=== PATIENT | female | born 1965 | race Caucasian/White ===

== ENCOUNTER 2019-09-14 21:30 | Emergency (ER) | payer OTHER, MEDICAID, SELFPAY ==
[2019-09-14 21:42] VITALS: BP 210/120; PULSE 86; RESP 16; TEMP 36.6; O2SAT 99; BMI 44.9
--- NOTE | 2019-09-14 22:09 | ED_ITS ---
HPI - General Adult General Chief complaint: Hypertension Stated complaint: dental pain causing high blood pressure Time Seen by Provider: 09/14/19 21:38 Source: patient Mode of arrival: Family Vehicle Limitations: no limitations History of Present Illness HPI narrative: Patient is a 53-year-old female who presents with dental pain and elevated blood pressure. She states she was at the walk-in clinic today for her tooth she was placed on antibiotic she has only taken 1 of them. However her blood pressure is quite elevated noted to be systolic over 200. She says that she has in quite a bit of pain from her tooth. She has no chest pain or palpitations or shortness of breath. She took 800 mg of ibuprofen prior to arrival along with Advil p.m.. Onset (ago): hour(s) Related Data Previous Rx's Medication Instructions Recorded hydrocodone-acetaminophen 1 tab PO Q6H PRN #10 tab 09/14/19 Allergies Allergy/AdvReac Type Severity Reaction Status Date / Time No Known Drug Allergies Allergy Verified 09/14/19 21:50 Review of Systems Review of Systems Narrative: GENERAL: Denies chills, fatigue, malaise, fever, sweats, travel HEENT: See HPI RESPIRATORY: Denies dyspnea, cough, wheezing, hemoptysis, sputum. CARDIOVASCULAR: Denies chest pain, palpitations, orthopnea, edema GASTROINTESTINAL: Denies nausea, vomiting, abdominal pain, diarrhea, constipation, melena. : Denies dysuria, frequency, incontinence, hematuria, urinary retention, flank pain. MUSCULOSKELETAL: Denies weakness, joint pain, or bony pain SKIN: No rash, no erythema, no pruritus NEUROLOGIC: Denies weakness, dizziness, headache, numbness, change in speech, confusion PSYCHIATRIC: No concerning psychosocial issues. 12 point review of systems is negative except for those stated above and HPI Patient History Medical History Hypertension (Acute) Social History Smoking Status: Never smoker alcohol intake frequency: a few times a week Substance Use Type: does not use Exam Initial Vital Signs Initial Vital Signs: Vital Signs Temperature 97.8 F 09/14/19 21:42 Pulse Rate 86 09/14/19 21:42 Respiratory Rate 16 09/14/19 21:42 Blood Pressure 210/120 H 09/14/19 21:42 Pulse Oximetry 99 09/14/19 21:42 GENERAL: Well-appearing, well-nourished and in no acute distress. HEENT: Head atraumatic,EOMI, pupils reactive, face symmetric, moist mucous membranes CARDIOVASCULAR: Regular rate and rhythm without murmurs, rubs or gallops. RESPIRATORY: Breath sounds equal bilaterally, no wheezes rales or rhonchi. ABDOMEN: Soft, nontender. Normoactive bowel sounds all 4 quadrants. No gua rding or rebound. EXTREMITIES: Normal range of motion, no clubbing or edema. Neurovascularly intact NEUROLOGICAL: Alert and oriented x4.Normal gait and speech. Cranial nerves II through XII grossly intact. SKIN: Warm, dry, no laceration, no petechiae, no rashes or lesions. [facility] Adult Head Mouth: 1. Pain, no dental abscess Procedures Nerve Block Nerve Block 1: Time out performed: Yes Local Anesthetic: bupivacaine 0.5% and with epi Intraoral Nerve Block: supraperiosteal Patient Tolerated Procedure: Well Complications: none Course Orders Ordered: ED Orders 09/14/19 22:41 EKG-12 Lead Stat 09/14/19 22:50 Complete Blood Count AUTO DIFF Stat Comprehensive Metabolic Panel Stat Lipase Stat Troponin & CK Cardiac Panel Stat Discontinued Medications Hydrocodone Bitart/Acetaminophen ([place] 5/325) 1 tab PO NOW ONE Stop: 09/14/19 22:28 Last Admin: 09/14/19 22:31 Dose: 1 tab Documented by: KDWIGHT Ketorolac Tromethamine (Toradol) 30 mg IV NOW ONE Stop: 09/14/19 23:51 Vital Signs Vital signs: Vital Signs - 8 hr 09/14/19 21:42 09/14/19 22:26 09/14/19 23:01 Temperature 97.8 F Pulse Rate 86 74 Respiratory Rate 16 Blood Pressure 210/120 H Blood Pressure [Left Arm] 204/106 H 192/110 H Pulse Oximetry 99 96 09/14/19 23:25 09/15/19 00:00 Temperature Pulse Rate 85 Respiratory Rate 18 Blood Pressure 206/100 H Blood Pressure [Left Arm] 210/98 H Pulse Oximetry 97 Medical Decision Making Lab Data Result diagrams: 09/14/19 22:50 09/14/19 22:50 Labs: Lab Results 09/14/19 09/14/19 Range/Units 22:50 22:50 WBC 8.5 (4.5-11.0) X10^3/uL RBC 4.40 (4.0-5.2) X10^6/uL Hgb 13.1 (12.0-16.0) g/dL Hct 38.9 (36-46) % MCV 88.6 (80-100) fL MCH 29.9 (26-34) PG MCHC 33.8 (30-36) % RDW 14.3 (11.6-14.8) % Plt Count 289 (150-400) X10^3/uL Neut % (Auto) 56.3 (50-75) % Lymph % (Auto) 29.7 (25-40) % [place] % (Auto) 7.2 (3-14) % Eos % (Auto) 6.3 H (2-4) % Baso % (Auto) 0.5 (0-2) % Neut # (Auto) 4800 (5266-0262) /uL Lymph # (Auto) 2500 (5717-1818) /uL [place] # (Auto) 600 (0-900) /uL Eos # (Auto) 500 H (0-450) /uL Baso # (Auto) 0 (0-100) /uL Sodium 141 (137-145) mmol/L Potassium 4.3 (3.4-5.1) mmol/L Chloride 103 (98-107) mmol/L Carbon Dioxide 29 (22-32) mmol/L BUN 25 H (7-17) mg/dL Creatinine 1.10 H (0.52-1.04) mg/dL Estimated GFR 52.2 L (>60) mL/min BUN/Creatinine Ratio 22.7 H (6-22) Glucose 126 H (70-100) mg/dL Calcium 9.2 (8.4-10.2) mg/dL Total Bilirubin 0.3 (0.2-1.3) mg/dL AST 37 H (14-36) IU/L ALT 38 H (<35) IU/L Alkaline Phosphatase 63 (38-126) U/L Total Creatine Kinase 219 H (30-135) U/L CK-MB (CK-2) 5.52 H (<2.37) ng/mL CK-MB (CK-2) Rel Index 2.5 (1.5-5.0) % Troponin I 0.030 (0.01-0.034) ng/mL Total Protein 7.5 (6.3-8.2) g/dL Albumin 4.5 (3.5-5.0) g/dL Globulin 3.0 (1.7-4.1) g/dL Albumin/Globulin Ratio 1.5 (1.0-2.8) Lipase 340 H (23-300) U/L ECG Data Attestation: I personally reviewed and interpreted this ECG as follows: Prior ECG tracings: not available for review Interpretation: Normal sinus rhythm rate 75 p.r. interval 136 and a QRS [address] elevations or depressions T-wave inversions noted in V2. No priors to compare MDM Narrative Medical decision making narrative: The patient's blood pressure is noted to be quite elevated is likely exacerbated by pain. She was given a dental block which only seemed to help mildly for pain. She was given [place] as well which seemed to help more. Due to persistently elevated blood pressure of blood work was checked no sign of end-organ damage. She has absolutely no chest pain shortness of breath or palpitations. She has an appointment with a dentist scheduled next week. She is already on antibiotics. Discharge Plan Departure Patient Disposition: Home Clinical Impression: Toothache Hypertension Qualifiers: Hypertension type: essential hypertension Qualified Code(s): I10 - Essential (primary) hypertension Discharge Date/Time: 09/15/19 00:02 Instructions: DI for High Blood Pressure, DI for Dental Pain Activity Restrictions/Additional Instructions: *You have been diagnosed with hypertension dental pain *What to do: Your blood pressure is probably elevated due to severe dental pain however blood work an EKG today are reassuring. *Continue to take medications as directed [place] 1-2 tablets every 6 hours if needed for severe pain Continue her antibiotic as previously prescribed *Follow up with your primary care provider in 2-3 days *Return to ER if you should have chest pain headache fevers facial swelling or any new, worsening or concerning symptoms CONTROLLED SUBSTANCE DISCHARGE (Narcotoic/benzodiazepine/Flexeril/Phenergan) 1. You have been prescribed narcotic medications, it does have acetaminophen/Tylenol/paracetamol in it so do not take extra Tylenol or Tylenol containing products 2. Please understand that we cannot provide further refills of narcotics, benzodiazepines or controlled substances through the ED and her pain management will need to be through your provider. 3. While on these medications you cannot drive or operate heavy machinery. 4. You cannot sign legal documents or perform any duties such as this. 5. As long as you're taking opiate pain medications he should also be taking a stool softener such as Colace, Dulcolax, MiraLAX or prune juice, to help avoid constipation. Prescriptions: New hydrocodone-acetaminophen 5-325 mg tablet 1 tab PO Q6H PRN (Reason: pain) Qty: 10 RF: 0 Referrals: Jan Dowd MD [Primary Care Provider] -
[2019-09-14 22:26] VITALS: BP 204/106
[2019-09-14] MEDS: HYDROCODONE/ACET 5/325 TABLET 1 TAB PO (22:31)
[2019-09-14 22:58] LABS: Add Manual Diff / Slide Review NO; Basophils Absolute Auto 0 /uL (0-100); Basophils Percent Auto 0.5 % (0-2); Eosinophils Absolute Auto 500 /uL (0-450); Eosinophils Percent Auto 6.3 % (2-4); Hematocrit 38.9 % (36-46); Hemoglobin 13.1 g/dL (12.0-16.0); Lymphocytes Absolute Auto 2500 /uL (1100-4500); Lymphocytes Percent Auto 29.7 % (25-40); Mean Corpuscular HGB Conc 33.8 % (30-36); Mean Corpuscular Hemoglobin 29.9 PG (26-34); Mean Corpuscular Volume 88.6 fL (80-100); Monocytes Absolute Auto 600 /uL (0-900); Monocytes Percent Auto 7.2 % (3-14); Neutrophils Absolute Auto 4800 /uL (1500-7000); Neutrophils Percent Auto 56.3 % (50-75); Platelet Count 289 X10^3/uL (150-400); Red Cell Distribution Width 14.3 % (11.6-14.8); White Blood Cell Count 8.5 X10^3/uL (4.5-11.0)
[2019-09-14 23:01] VITALS: BP 192/110; PULSE 74; O2SAT 96
[2019-09-14 23:10] LABS: Alanine Aminotransferase 38 IU/L (<35); Albumin 4.5 g/dL (3.5-5.0); Albumin Globulin Ratio 1.5 (1.0-2.8); Alkaline Phosphatase 63 U/L (38-126); Aspartate Aminotransferase 37 IU/L (14-36); BUN Creatinine Ratio 22.7 (6-22); Bilirubin Total 0.3 mg/dL (0.2-1.3); Blood Urea Nitrogen 25 mg/dL (7-17); Calcium 9.2 mg/dL (8.4-10.2); Carbon Dioxide 29 mmol/L (22-32); Chloride 103 mmol/L (98-107); Creatine Kinase 219 U/L (30-135); Estimated Glomerular Filt Rate 52.2 mL/min (>60); Glucose 126 mg/dL (70-100); HEMOLYSIS < 15 (0-50); Lipase 340 U/L (23-300); Potassium 4.3 mmol/L (3.4-5.1); Sodium 141 mmol/L (137-145); Total Protein 7.5 g/dL (6.3-8.2)
[2019-09-14 23:25] VITALS: BP 210/98
[2019-09-14 23:25] LABS: CKMB % Relative Index 2.5 % (1.5-5.0); Creatine Kinase MB 5.52 ng/mL (<2.37)
[2019-09-15] VITALS: BP 206/100; PULSE 85; RESP 18; O2SAT 97
== END 2019-09-15 00:02 | disposition home or self-care (01) ==
PROVIDERS: Emergency Provider Emergency Medicine; PCP Family Medicine
DX: K08.89 Other specified disorders of teeth and supporting structures (principal); I10 Essential (primary) hypertension
CPT/HCPCS: 36415; 64450; 80053; 82550; 82553; 83690; 84484; 85025; 93005; 99283; 99284

== ENCOUNTER → 2020-09-10 16:27 | Outpatient (CLI) | payer OTHER, MEDICAID, SELFPAY ==
--- NOTE | 2020-09-10 | DI.MG.S_ITS ---
BILATERAL DIGITAL SCREENING MAMMOGRAM 3D/2D WITH CAD: 09/10/2020 CLINICAL: Routine screening. Comparison is made to exams dated: 07/16/2016 mammogram, 07/02/2016 mammogram, 04/04/2015 mammogram, and 05/10/2007 mammogram - [facility]. The tissue of both breasts is heterogeneously dense. This may lower the sensitivity of mammography. Current study was also evaluated with a Computer Aided Detection (CAD) system. There is an oval asymmetry in the left breast middle depth superior region seen on the mediolateral oblique view only. This is more prominent. No other significant masses, calcifications, or other findings are seen in either breast. IMPRESSION: INCOMPLETE: NEEDS ADDITIONAL IMAGING EVALUATION The oval asymmetry in the left breast is indeterminate. Additional views with possible ultrasound are recommended. This exam was interpreted at Station ID: [id number]. NOTE: For mammograms, a report in lay terms will be sent to the patient. Approximately 15% of breast malignancies will not be visualized mammographically. In the management of a palpable breast mass, a negative mammogram must not discourage biopsy of a clinically suspicious lesion. Electronically Signed By: Fredo Cadet M.D. slc/:09/10/2020 17:40:19 letter sent: Additional Imaging Needed ACR BI-RADS Category 0: Incomplete [id number]
== END ==
PROVIDERS: PCP Student in an Organized Health Care Education/Training Program; Referring Provider Student in an Organized Health Care Education/Training Program; Visit Provider Student in an Organized Health Care Education/Training Program
DX: Z12.31 Encounter for screening mammogram for malignant neoplasm of breast (principal)
CPT/HCPCS: 77063; 77067

== ENCOUNTER → 2020-10-08 08:33 | Outpatient (CLI) | payer OTHER, MEDICAID, SELFPAY ==
--- NOTE | 2020-10-08 | DI.MG.S_ITS ---
UNILATERAL LEFT DIGITAL DIAGNOSTIC MAMMOGRAM 3D/2D WITH ADDITIONAL VIEWS: 10/08/2020 CLINICAL: Additional evaluation requested from prior study. Comparison is made to exams dated: 09/10/2020 mammogram, 07/16/2016 mammogram, and 07/02/2016 mammogram - [facility]. The tissue of left breast is heterogeneously dense. This may lower the sensitivity of mammography. There is an oval equal density asymmetry with an indistinct margin in the left breast middle depth superior region seen on the mediolateral oblique view only. This is less prominent. No other significant masses or calcifications are seen in the breast. IMPRESSION: INCOMPLETE: NEEDS ADDITIONAL IMAGING EVALUATION The oval equal density asymmetry in the left breast is indeterminate. An ultrasound is recommended. This exam was interpreted at Station ID: [id number]. NOTE: For mammograms, a report in lay terms will be sent to the patient. Approximately 15% of breast malignancies will not be visualized mammographically. In the management of a palpable breast mass, a negative mammogram must not discourage biopsy of a clinically suspicious lesion. Electronically Signed By: Nguyễn niño/schuyler:10/08/2020 09:03:41 ACR BI-RADS Category 0: Incomplete [id number]
--- NOTE | 2020-10-08 | DI.US.S_ITS ---
LIMITED ULTRASOUND OF LEFT BREAST AND AXILLA: 10/08/2020 CLINICAL: Patient returns today to evaluate a focal asymmetry in the left breast. Comparison is made to exams dated: 10/08/2020 mammogram, 09/10/2020 mammogram, 07/16/2016 mammogram, 07/02/2016 mammogram, 04/04/2015 mammogram, and 05/10/2007 mammogram - [facility]. Color flow and real-time ultrasound of the left breast 11-1 o'clock, and axilla regions were performed on the areas of interest. There is a 1.1 cm x 0.7 cm x 0.4 cm oval mass with a circumscribed margin in the left breast at 12 o'clock middle depth 7 cm from the nipple. This oval mass is hypoechoic. This likely correlates with mammography findings. Color flow imaging demonstrates that there is no vascularity present. There also is a 0.4 cm x 0.4 cm x 0.3 cm oval cyst in the left breast at 12 o'clock anterior depth 5 cm from the nipple. This oval cyst is hypoechoic with a well-defined boundary, internal echoes, and posterior acoustic enhancement. Color flow imaging demonstrates that there is no vascularity present. No significant enlarged lymph nodes were seen sonographically in the left axilla. IMPRESSION: PROBABLY BENIGN The 1.1 cm x 0.7 cm x 0.4 cm oval mass in the left breast at 12 o'clock middle depth resembles fibroglandular tissue and is probably benign. Follow-up mammogram and ultrasound in 6 months are recommended. The 0.4 cm x 0.4 cm x 0.3 cm oval cyst in the left breast at 12 o'clock anterior depth is consistent with a complicated cyst and is probably benign. A follow-up ultrasound in 6 months is recommended. A follow-up mammogram and an ultrasound in 6 months are recommended to demonstrate stability. This exam was interpreted at Station ID: [id number]. Electronically Signed By: Nguyễn niño/:10/08/2020 10:31:14 letter sent: Followup Recommended Ultrasound BI-RADS: 3 Probably benign
== END ==
PROVIDERS: PCP Student in an Organized Health Care Education/Training Program; Referring Provider Student in an Organized Health Care Education/Training Program; Visit Provider Student in an Organized Health Care Education/Training Program
DX: R92.8 Other abnormal and inconclusive findings on diagnostic imaging of breast (principal); N63.25 Unspecified lump in the left breast, overlapping quadrants; N60.02 Solitary cyst of left breast
CPT/HCPCS: 76642; 77065; G0279

== ENCOUNTER → 2020-11-28 12:49 | Outpatient (CLI) | payer OTHER, MEDICAID, SELFPAY ==
[2020-11-29 11:07] LABS: COVID19 -Nasal RAPID Negative (Negative)
== END ==
PROVIDERS: PCP Student in an Organized Health Care Education/Training Program; Visit Provider Family Medicine Sleep Medicine
DX: Z20.822 Contact with and (suspected) exposure to COVID-19 (principal)
CPT/HCPCS: 87635

== ENCOUNTER → 2020-12-19 08:26 | Outpatient (CLI) | payer OTHER, MEDICAID, SELFPAY ==
[2020-12-19 10:14] LABS: COVID19 -Nasal RAPID Negative (Negative)
== END ==
PROVIDERS: PCP Student in an Organized Health Care Education/Training Program; Visit Provider Family Medicine Sleep Medicine
DX: Z20.822 Contact with and (suspected) exposure to COVID-19 (principal); G47.33 Obstructive sleep apnea (adult) (pediatric); G47.00 Insomnia, unspecified; G47.19 Other hypersomnia; R06.83 Snoring; E66.01 Morbid (severe) obesity due to excess calories
CPT/HCPCS: 87635; 95811

== ENCOUNTER → 2021-01-31 08:02 | Outpatient (CLI) | payer OTHER, MEDICAID, SELFPAY ==
[2021-01-31] MEDS: COVID-19 VACC #1, MRNA(MOD) 100 MCG/0.5 ML VIAL IM (08:05)
== END ==
PROVIDERS: PCP Student in an Organized Health Care Education/Training Program; Visit Provider Internal Medicine
DX: Z23 Encounter for immunization (principal)
CPT/HCPCS: 0011A; 91301

== ENCOUNTER → 2021-02-28 07:50 | Outpatient (CLI) | payer OTHER, MEDICAID, SELFPAY ==
[2021-02-28] MEDS: COVID-19 VACC #2, MRNA(MOD) 100 MCG/0.5 ML VIAL IM (08:00)
== END ==
PROVIDERS: PCP Student in an Organized Health Care Education/Training Program; Visit Provider Internal Medicine
DX: Z23 Encounter for immunization (principal)
CPT/HCPCS: 0012A; 91301

== ENCOUNTER 2021-03-24 14:15 | Outpatient (RCR) | payer OTHER, MEDICAID, SELFPAY ==
--- NOTE | 2020-09-06 17:07 | PT.OIE ---
Current Diagnoses Urge incontinence (09/06/20) Past Medical History (Last Reviewed 09/14/19 @ 22:10 by Nirali Cox DO) Hypertension (Acute) Visit Care Team Role Provider Type Justyna Burdick MD Attending Provider Physician Primary Care Provider Referring Provider Specialty: Family Practice Address: [address] [place] [address], [place], [address] Email: [email or web address] Physical Therapy Initial Evaluation PT-OP-A Visit Information Start: 09/05/20 17:19 Freq: Status: Active Protocol: Document 09/06/20 10:47 LRN (Rec: 09/06/20 12:37 LRN [id number]) Out-Patient Physical Therapy Visit Information Visit Information Visit Type Initial Evaluation Visit Start Time 09:48 Visit Stop Time 10:40 Total Visit Minutes 52 Visit Number 1 Evaluation Information Evaluation Date 09/06/20 Precautions Precautions Depression, Controlled HBP PT-OP-B Current Condition Start: 09/05/20 17:19 Freq: Status: Active Protocol: Document 09/06/20 10:47 LRN (Rec: 09/06/20 12:37 LRN [id number]) Current Condition History of Current Condition Onset Date 6 yrs ago Current Complaints Incontinence with a strong urge Prior Treatments and Tests Physical therapy 2 yrs ago, but not able to complete due to insurance limit. Chiropractic treatment 2x/year Future Testing and Treatments Planned Sleep study. Developmental History Developmental History Had 1 son that was set up for adoption in 1988. was without complications except possible hemorrhaging Treatment Goals Patient/Caregiver Goals Pt goal is to gain control over bladder. To eliminate incontinence To be able to delay to make it to bathroom. 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 Current Functional Impairments (Reported) Functional Limitations- ADL's Pt not able to go outside the home without use of maxi-pad due to fear of loss of urine. Functional Limitations- Other Has history of R sciatic pain, R LBP, UBP. Personal Factors Other Personal Factors That May Effect Lives alone. Therapy/Recovery Endomorphic body type. PT-OP-C Subjective Start: 09/05/20 17:19 Freq: Status: Active Protocol: Document 09/06/20 10:47 LRN (Rec: 09/06/20 13:58 LRN [id number]) Patient Questionnaires Pelvic Pain and Urgency/Frequency Patient Symptom Scale Pelvic Pain Score 3 OP-PT Pain Assessment Pain Assessment Grid Paper Pain Assessment Grid Completed Yes: No pain noted. PT-OP-I Pelvic Floor Start: 09/05/20 17:19 Freq: Status: Active Protocol: Document 09/06/20 10:47 LRN (Rec: 09/06/20 12:37 LRN [id number]) Pelvic Floor Assessment Urine Pelvic Floor Surgery No Urinary Symptoms Urge Sensation,Hesitancy Other Urinary Symptoms Dribbling as walking to bathroom, Loss of urine with strong urge and first in the morning. Leakage Size Large Leakage Cause Urge Other Leakage Causes Triggers: Getting out of car, Walking into the house. Getting up first in the morning Leaks Per Day 3 Voiding Frequency 3 Nocturia 3 Pads Used In 24 Hours 1 Urine Pad Type Maxi Pad Bowel Bowel Surgery No Pelvic Clock Pelvic Clock 12-3 Tightness Pelvic Clock 3-6 Tightness Pelvic Clock 6-9 Tightness Pelvic Clock 9-12 Tightness Perineal Descent Resting Absent Bearing Absent Contraction Ability Voluntary Contraction Moderate Manual Muscle Testing Left 3 Manual Muscle Testing Right 2 Manual Muscle Testing Anterior 1 Manual Muscle Testing Posterior 3 Muscle Endurance (Seconds) 1 Number of Quick Contractions In 10 7 Seconds Comments Pelvic Floor Comments Quick Flick contraction weakness felt after 3 contractions. Visual inspection: Redness of perineum. No visible clitoral nod and anal wink. PT-OP-J Posture/Palpation/Skin Start: 09/05/20 17:19 Freq: Status: Active Protocol: Document 09/06/20 10:47 LRN (Rec: 09/06/20 12:37 LRN [id number]) Posture Evaluation Position Standing Evaluation View All positions Head/C-Spine Posture C-Spine Flattened T-Spine Posture Flattened L-Spine Posture Increased Lordosis Pelvis Posture Anteriorly Tilted,(R) Iliac Crest Superior,(R) PSIS Posterior Weight Distribution Balanced Ankle/Foot Posture (L) Pronated PT-OP-K Range of Motion Start: 09/05/20 17:19 Freq: Status: Active Protocol: Document 09/06/20 10:47 LRN (Rec: 09/06/20 12:37 LRN [id number]) Lumbar Spine Range of Motion Lumbar Spine Active Degrees Testing Position Standing Flexion 70 Extension 25 Rotation Left 20 Rotation Right 5 Lateral Flexion Left 20 Lateral Flexion Right 10 ROM Limitations Soft Tissue Tightness Hip Goniometric Range of Motion Hip Right Passive Testing Position Supine Internal Rotation 20 External Rotation 45 Comments ROM: not formally assessed. Left Passive Testing Position Supine Internal Rotation 10 External Rotation 60 Comments ROM: not formally assessed. PT-OP-M Strength Start: 09/05/20 17:19 Freq: Status: Active Protocol: Document 09/06/20 10:47 LRN (Rec: 09/06/20 12:37 LRN [id number]) Trunk Strength Trunk Manual Muscle Testing Testing Position Supine Core Stabilization Pt not able to maintain core stability (weak core R rot) with MMT leg on L side. Hip Strength Hip Manual Muscle Testing Right Flexion (L2) 4+ Good+ Adduction 4+ Good+ Comments Hip strength is 5/5 except as indicated above. Left Adduction 4+ Good+ Comments Hip strength is 5/5 except as indicated above. PT-OP-Q Treatments Start: 09/05/20 17:19 Freq: Status: Active Protocol: Document 09/06/20 10:47 LRN (Rec: 09/06/20 12:37 LRN [id number]) Self-Care/Home Management Treatment Education Patient Education Home Exercise Program Other Education Discussed goals and discussed results of evaluation. Education: Pt educated in use of Bladder Diary and I/S in tracking for 1 week. Discussed use of 2 different diaries for tracking of bladder. Activities Self-Care/Home Management Activities Issue & reviewed HEP for Kegels Quick Flicks and Long Holds. PT-OP-T Assessment and Plan Start: 09/05/20 17:19 Freq: Status: Active Protocol: Document 09/06/20 10:47 LRN (Rec: 09/06/20 12:37 LRN [id number]) Physical Therapy Assessment Rehab Potential Rehabilitation Potential Good Evaluation Complexity Number of Personal Factors/Comorbidities 1-2 Number of Body Systems Impaired 3 Clinical Presentation at Evaluation Evolving Impairments Impairments Coordination,Posture,ROM, Strength Goals Four Impairment Urinary continence w/triggers (getting out of car, walking into home) Short Term Goal (STG) Pt will be educated in Urge delay technique. STG Duration 09/20/20 Intermediate Goal (LTG) Pt will be able to control her urinary incontinence in the presence of triggers (getting out of car and walking into her house). LTG Duration 12/05/20 Three Impairment weakness of PF and core Short Term Goal (STG) Pt will demonstrate improved PF strength of at least 3/5 and with LE muscle testing of a core strength of at least 3+ /5. STG Duration 10/1820 Intermediate Goal (LTG) Pt will be able to delay urge to urinate in order to make it to bathroom getting up first in the morning. LTG Duration 12/05/20 Two Impairment Assymetry of hip mob and assymetry of pelvic positioning Short Term Goal (STG) Pt will improve symmetry of hip rotator symmetry. STG Duration 10/18/20 Intermediate Goal (LTG) Pt will demonstrate improved symmetry of pelvic positioning . LTG Duration 12/05/20 One Impairment Pt lacks an independent self care HEP. Scutcher Tender Goal (LTG) Pt will be independent and consistent with a self care HEP LTG Duration 12/05/20 Assessment Summary Assessment Pt presents with symptoms of urge incontinence due to PF weakness, core and hip instability/weakness and poor follow through of previous self correction program. The pt will benefit from skilled physical therapy for pt education, strengthening/ROM exercise, manual therapy, posture training and coordination of PF contraction . Physical Therapy Plan Frequency and Duration Frequency of Treatment 1x/Week Plan of Care Start Date 09/06/20 Plan of Care End Date 12/05/20 Therapeutic Interventions Therapeutic Interventions Coordination Training,Home Exercise Program,Manual Therapy,Neuromuscular Re- education,Patient/Caregiver Education,Self-Care/Home Management,Therapeutic Exercises Modalities Biofeedback Next Visit Focus/Plan Next Note Type Treatment Note Next Visit Plan Review bladder diary and discuss/make appropriate recommendations. Discuss proper PF care and educate in PF tissue health. Pt educated in urge delay technique. Assess PF contraction coordination and strength/ relaxation per EMG biofeedback . Initiate HEP: hip ROM ex' s and hip AD strengthening. HEP for core strengthening exercise and address posture. Manual therapy for PF stretching due to tightness.
--- NOTE | 2020-09-06 17:07 | PT.OPPOC ---
Physical, Occupational & Speech Therapy At [facility] Current Diagnoses Urge incontinence (09/06/20) Visit Care Team Role Provider Type Justyna Burdick MD Attending Provider Physician Primary Care Provider Referring Provider Specialty: Family Practice Address: [address] [place] [address], [facility] [place], [address] Email: [email or web address] Plan Of Care PT-OP-T Assessment and Plan Start: 09/05/20 17:19 Freq: Status: Active Protocol: Document 09/06/20 10:47 LRN (Rec: 09/06/20 12:37 LRN [id number]) Physical Therapy Assessment Rehab Potential Rehabilitation Potential Good Evaluation Complexity Number of Personal Factors/Comorbidities 1-2 Number of Body Systems Impaired 3 Clinical Presentation at Evaluation Evolving Impairments Impairments Coordination,Posture,ROM, Strength Goals Four Impairment Urinary continence w/triggers (getting out of car, walking into home) Short Term Goal (STG) Pt will be educated in Urge delay technique. STG Duration 09/20/20 Circulator Goal (LTG) Pt will be able to control her urinary incontinence in the presence of triggers (getting out of car and walking into her house). LTG Duration 12/05/20 Three Impairment weakness of PF and core Short Term Goal (STG) Pt will demonstrate improved PF strength of at least 3/5 and with LE muscle testing of a core strength of at least 3+ /5. STG Duration 10/1820 Skilled Nursing Goal (LTG) Pt will be able to delay urge to urinate in order to make it to bathroom getting up first in the morning. LTG Duration 12/05/20 Two Impairment Assymetry of hip mob and assymetry of pelvic positioning Short Term Goal (STG) Pt will improve symmetry of hip rotator symmetry. STG Duration 10/18/20 Skilled Nursing Goal (LTG) Pt will demonstrate improved symmetry of pelvic positioning . LTG Duration 12/05/20 One Impairment Pt lacks an independent self care HEP. Circulator Goal (LTG) Pt will be independent and consistent with a self care HEP LTG Duration 12/05/20 Assessment Summary Assessment Pt presents with symptoms of urge incontinence due to PF weakness, core and hip instability/weakness and poor follow through of previous self longterm program. The pt will benefit from skilled physical therapy for pt education, strengthening/ROM exercise, manual therapy, posture training and coordination of PF contraction . Physical Therapy Plan Frequency and Duration Frequency of Treatment 1x/Week Plan of Care Start Date 09/06/20 Plan of Care End Date 12/05/20 Therapeutic Interventions Therapeutic Interventions Coordination Training,Home Exercise Program,Manual Therapy,Neuromuscular Re- education,Patient/Caregiver Education,Self-Care/Home Management,Therapeutic Exercises Modalities Biofeedback Next Visit Focus/Plan Next Note Type Treatment Note Next Visit Plan Review bladder diary and discuss/make appropriate recommendations. Discuss proper PF care and educate in PF tissue health. Pt educated in urge delay technique. Assess PF contraction coordination and strength/ relaxation per EMG biofeedback . Initiate HEP: hip ROM ex' s and hip AD strengthening. HEP for core strengthening exercise and address posture. Manual therapy for PF stretching due to tightness. Plan of Care Dates Plan of Care Start Date 09/06/20 Plan of Care End Date 12/05/20 Electronically Signed by: Lucero Carlisle, PT 09/06/20 [id number] Please Sign and Return: I have reviewed this Plan of Care and certify that the skilled therapy services above are required to meet the patient?s needs. Physician Signature Date Printed Name and Credentials Clinical Instructor Signature Printed Name and Credentials
--- NOTE | 2020-09-13 16:42 | PT.OTN ---
Current Diagnoses Urge incontinence (09/13/20) Physical Therapy Treatment Note PT-OP-A Visit Information Start: 09/05/20 17:19 Freq: Status: Active Protocol: Document 09/13/20 09:52 LRN (Rec: 09/13/20 10:35 LRN [id number]) Out-Patient Physical Therapy Visit Information Visit Information Visit Type Re-Evaluation Visit Start Time 09:52 Visit Stop Time 10:32 Total Visit Minutes 40 Visit Number 2 Evaluation Information Evaluation Date 09/06/20 Precautions Precautions Depression, Controlled HBP PT-OP-B Current Condition Start: 09/05/20 17:19 Freq: Status: Active Protocol: Document 09/06/20 10:47 LRN (Rec: 09/06/20 12:37 LRN [id number]) Current Condition History of Current Condition Onset Date 6 yrs ago Current Complaints Incontinence with a strong urge Prior Treatments and Tests Physical therapy 2 yrs ago, but not able to complete due to insurance limit. Chiropractic treatment 2x/year Future Testing and Treatments Planned Sleep study. Developmental History Developmental History Had 1 son that was set up for adoption in 1988. was without complications except possible hemorrhaging Treatment Goals Patient/Caregiver Goals Pt goal is to gain control over bladder. To eliminate incontinence To be able to delay to make it to bathroom. 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 Current Functional Impairments (Reported) Functional Limitations- ADL's Pt not able to go outside the home without use of maxi-pad due to fear of loss of urine. Functional Limitations- Other Has history of R sciatic pain, R LBP, UBP. Personal Factors Other Personal Factors That May Effect Lives alone. Therapy/Recovery Endomorphic body type. PT-OP-C Subjective Start: 09/05/20 17:19 Freq: Status: Active Protocol: Document 09/13/20 09:52 LRN (Rec: 09/13/20 10:35 LRN [id number]) OP-PT Subjective Patient Comments Patient Comments Did bladder diary. PT-OP-I Pelvic Floor Start: 09/05/20 17:19 Freq: Status: Active Protocol: Document 09/06/20 10:47 LRN (Rec: 09/06/20 12:37 LR [id number]) Pelvic Floor Assessment Urine Pelvic Floor Surgery No Urinary Symptoms Urge Sensation,Hesitancy Other Urinary Symptoms Dribbling as walking to bathroom, Loss of urine with strong urge and first in the morning. Leakage Size Large Leakage Cause Urge Other Leakage Causes Triggers: Getting out of car, Walking into the house. Getting up first in the morning Leaks Per Day 3 Voiding Frequency 3 Nocturia 3 Pads Used In 24 Hours 1 Urine Pad Type Maxi Pad Bowel Bowel Surgery No Pelvic Clock Pelvic Clock 12-3 Tightness Pelvic Clock 3-6 Tightness Pelvic Clock 6-9 Tightness Pelvic Clock 9-12 Tightness Perineal Descent Resting Absent Bearing Absent Contraction Ability Voluntary Contraction Moderate Manual Muscle Testing Left 3 Manual Muscle Testing Right 2 Manual Muscle Testing Anterior 1 Manual Muscle Testing Posterior 3 Muscle Endurance (Seconds) 1 Number of Quick Contractions In 10 7 Seconds Comments Pelvic Floor Comments Quick Flick contraction weakness felt after 3 contractions. Visual inspection: Redness of perineum. No visible clitoral nod and anal wink. PT-OP-J Posture/Palpation/Skin Start: 09/05/20 17:19 Freq: Status: Active Protocol: Document 09/06/20 10:47 LRN (Rec: 09/06/20 12:37 [facility] [id number]) Posture Evaluation Position Standing Evaluation View All positions Head/C-Spine Posture C-Spine Flattened T-Spine Posture Flattened L-Spine Posture Increased Lordosis Pelvis Posture Anteriorly Tilted,(R) Iliac Crest Superior,(R) PSIS Posterior Weight Distribution Balanced Ankle/Foot Posture (L) Pronated PT-OP-K Range of Motion Start: 09/05/20 17:19 Freq: Status: Active Protocol: Document 09/06/20 10:47 LRN (Rec: 09/06/20 12:37 [facility] [id number]) Lumbar Spine Range of Motion Lumbar Spine Active Degrees Testing Position Standing Flexion 70 Extension 25 Rotation Left 20 Rotation Right 5 Lateral Flexion Left 20 Lateral Flexion Right 10 ROM Limitations Soft Tissue Tightness Hip Goniometric Range of Motion Hip Right Passive Testing Position Supine Internal Rotation 20 External Rotation 45 Comments ROM: not formally assessed. Left Passive Testing Position Supine Internal Rotation 10 External Rotation 60 Comments ROM: not formally assessed. PT-OP-M Strength Start: 11/05/20 17:19 Freq: Status: Active Protocol: Document 09/06/20 10:47 LRN (Rec: 09/06/20 12:37 LRN [id number]) Trunk Strength Trunk Manual Muscle Testing Testing Position Supine Core Stabilization Pt not able to maintain core stability (weak core R rot) with MMT leg on L side. Hip Strength Hip Manual Muscle Testing Right Flexion (L2) 4+ Good+ Adduction 4+ Good+ Comments Hip strength is 5/5 except as indicated above. Left Adduction 4+ Good+ Comments Hip strength is 5/5 except as indicated above. PT-OP-Q Treatments Start: 09/05/20 17:19 Freq: Status: Active Protocol: Document 09/13/20 09:52 LRN (Rec: 09/13/20 10:35 LRN [id number]) Therapeutic Exercises Supine Exercises Deep Breathing Supine Exercise Name Deep Breathing training sitting and supine Reps/Minutes 6' Self-Care/Home Management Treatment Education Other Education Extensive education (30') of review & discussion of bladder diary, hydration levels discussed, fluid types intake, bowels function. Educated and discussed dietary bladder irritants. Educated at length, Urinary Defer technique and discussion of bladder retraining. Activities Self-Care/Home Management Activities Issued (with review) Bladder irritants, diaphragmatic breathing and bladder retraining handouts. PT-OP-T Assessment and Plan Start: 09/05/20 17:19 Freq: Status: Active Protocol: Document 09/13/20 09:52 LRN (Rec: 09/13/20 10:35 LRN [id number]) Physical Therapy Assessment Goals Four Impairment Urinary continence w/triggers (getting out of car, walking into home) Short Term Goal (STG) Pt will be educated in Urge delay technique. STG Duration 09/20/20 (09/13/20: MET GOAL ) [employer] Goal (LTG) Pt will be able to control her urinary incontinence in the presence of triggers (getting out of car and walking into her house). LTG Duration 12/05/20 Three Impairment weakness of PF and core Short Term Goal (STG) Pt will demonstrate improved PF strength of at least 3/5 and with LE muscle testing of a core strength of at least 3+ /5. STG Duration 10/1820 [employer] Goal (LTG) Pt will be able to delay urge to urinate in order to make it to bathroom getting up first in the morning. LTG Duration 12/05/20 Two Impairment Assymetry of hip mob and assymetry of pelvic positioning Short Term Goal (STG) Pt will improve symmetry of hip rotator symmetry. STG Duration 10/18/20 [employer] Editor Goal (LTG) Pt will demonstrate improved symmetry of pelvic positioning . LTG Duration 12/05/20 One Impairment Pt lacks an independent self care HEP. [facility] Goal (LTG) Pt will be independent and consistent with a self care HEP LTG Duration 12/05/20 (09/13/20: Progressing) Progress Towards Goals Progress Comments Improved deep breathing from 3 sec breath to 4-5 sec breath. Assessment Summary Assessment It was difficulty to determine primary reason for incontinence due to pt not counting void times and possibly not having full accuracy of diary. Pt bladder irritants appears to be having an effect on her continence level and is not as bad as it could be due to her poor hydration level. Pt is weak in her PF that is also a reason for her incontinence. She is able to perform a proper deep breath, but is very quick in her breathing (3 sec breath improved to 4-5 with training). Physical Therapy Plan Frequency and Duration Frequency of Treatment 1x/Week Plan of Care Start Date 09/06/20 Plan of Care End Date 12/05/20 Next Visit Focus/Plan Next Note Type Treatment Note Next Visit Plan Discuss proper PF care and educate in PF tissue health. Review urge delay technique. Assess PF contraction coordination and strength/ relaxation per EMG biofeedback . Initiate LE roll in/out PF strengthening & HEP: hip ROM ex's and hip AD strengthening . HEP for core strengthening exercise and address posture. Manual therapy for PF stretching due to tightness.
--- NOTE | 2020-09-20 16:20 | PT.OTN ---
Current Diagnoses Urge incontinence (09/20/20) Physical Therapy Treatment Note PT-OP-A Visit Information Start: 09/05/20 17:19 Freq: Status: Active Protocol: Document 09/20/20 09:51 LRN (Rec: 09/20/20 10:35 LRN [id number]) Out-Patient Physical Therapy Visit Information Visit Information Visit Type Treatment Note Visit Start Time 09:51 Visit Stop Time 10:30 Total Visit Minutes 39 Visit Number 3 Evaluation Information Evaluation Date 09/06/20 Precautions Precautions Depression, Controlled HBP PT-OP-B Current Condition Start: 09/05/20 17:19 Freq: Status: Active Protocol: Document 09/06/20 10:47 LRN (Rec: 09/06/20 12:37 LRN [id number]) Current Condition History of Current Condition Onset Date 6 yrs ago Current Complaints Incontinence with a strong urge Prior Treatments and Tests Physical therapy 2 yrs ago, but not able to complete due to insurance limit. Chiropractic treatment 2x/year Future Testing and Treatments Planned Sleep study. Developmental History Developmental History Had 1 son that was set up for adoption in 1988. was without complications except possible hemorrhaging Treatment Goals Patient/Caregiver Goals Pt goal is to gain control over bladder. To eliminate incontinence To be able to delay to make it to bathroom. 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 Current Functional Impairments (Reported) Functional Limitations- ADL's Pt not able to go outside the home without use of maxi-pad due to fear of loss of urine. Functional Limitations- Other Has history of R sciatic pain, R LBP, UBP. Personal Factors Other Personal Factors That May Effect Lives alone. Therapy/Recovery Endomorphic body type. PT-OP-C Subjective Start: 09/05/20 17:19 Freq: Status: Active Protocol: Document 09/20/20 09:51 LRN (Rec: 09/20/20 10:35 LRN [id number]) OP-PT Subjective Patient Comments Patient Comments [place] the bladder diary was helpful. [place] not drinking enough fluids and using the defer technique helped to decrease leakage. PT-OP-I Pelvic Floor Start: 09/05/20 17:19 Freq: Status: Active Protocol: Document 09/06/20 10:47 LRN (Rec: 09/06/20 12:37 LRN [id number]) Pelvic Floor Assessment Urine Pelvic Floor Surgery No Urinary Symptoms Urge Sensation,Hesitancy Other Urinary Symptoms Dribbling as walking to bathroom, Loss of urine with strong urge and first in the morning. Leakage Size Large Leakage Cause Urge Other Leakage Causes Triggers: Getting out of car, Walking into the house. Getting up first in the morning Leaks Per Day 3 Voiding Frequency 3 Nocturia 3 Pads Used In 24 Hours 1 Urine Pad Type Maxi Pad Bowel Bowel Surgery No Pelvic Clock Pelvic Clock 12-3 Tightness Pelvic Clock 3-6 Tightness Pelvic Clock 6-9 Tightness Pelvic Clock 9-12 Tightness Perineal Descent Resting Absent Bearing Absent Contraction Ability Voluntary Contraction Moderate Manual Muscle Testing Left 3 Manual Muscle Testing Right 2 Manual Muscle Testing Anterior 1 Manual Muscle Testing Posterior 3 Muscle Endurance (Seconds) 1 Number of Quick Contractions In 10 7 Seconds Comments Pelvic Floor Comments Quick Flick contraction weakness felt after 3 contractions. Visual inspection: Redness of perineum. No visible clitoral nod and anal wink. PT-OP-J Posture/Palpation/Skin Start: 09/05/20 17:19 Freq: Status: Active Protocol: Document 09/06/20 10:47 LRN (Rec: 09/06/20 12:37 LRN [id number]) Posture Evaluation Position Standing Evaluation View All positions Head/C-Spine Posture C-Spine Flattened T-Spine Posture Flattened L-Spine Posture Increased Lordosis Pelvis Posture Anteriorly Tilted,(R) Iliac Crest Superior,(R) PSIS Posterior Weight Distribution Balanced Ankle/Foot Posture (L) Pronated PT-OP-K Range of Motion Start: 09/05/20 17:19 Freq: Status: Active Protocol: Document 09/06/20 10:47 LRN (Rec: 09/06/20 12:37 LRN [id number]) Lumbar Spine Range of Motion Lumbar Spine Active Degrees Testing Position Standing Flexion 70 Extension 25 Rotation Left 20 Rotation Right 5 Lateral Flexion Left 20 Lateral Flexion Right 10 ROM Limitations Soft Tissue Tightness Hip Goniometric Range of Motion Hip Right Passive Testing Position Supine Internal Rotation 20 External Rotation 45 Comments ROM: not formally assessed. Left Passive Testing Position Supine Internal Rotation 10 External Rotation 60 Comments ROM: not formally assessed. PT-OP-M Strength Start: 09/05/20 17:19 Freq: Status: Active Protocol: Document 09/06/20 10:47 LRN (Rec: 09/06/20 12:37 LRN [id number]) Trunk Strength Trunk Manual Muscle Testing Testing Position Supine Core Stabilization Pt not able to maintain core stability (weak core R rot) with MMT leg on L side. Hip Strength Hip Manual Muscle Testing Right Flexion (L2) 4+ Good+ Adduction 4+ Good+ Comments Hip strength is 5/5 except as indicated above. Left Adduction 4+ Good+ Comments Hip strength is 5/5 except as indicated above. PT-OP-Q Treatments Start: 09/05/20 17:19 Freq: Status: Active Protocol: Document 09/20/20 09:51 LRN (Rec: 09/20/20 10:35 LRN [id number]) Therapeutic Exercises Supine Exercises LE roll in/outs Supine Exercise Name LE roll in/out w/o and w/deep breathing Side bilateral Reps/Minutes 9' Comments Tried adding PF contraction but pt not able to coordinate. Deep Breathing Supine Exercise Name Deep Breathing training sitting and supine Reps/Minutes 6' Self-Care/Home Management Treatment Education Other Education 21' reviewof bladder diary and discusssion of areas of improvement and including discussing changes to routine for drinking more fluids.. Activities Self-Care/Home Management Activities Issued & reviewed HEP: LE roll in/out. PT-OP-T Assessment and Plan Start: 09/05/20 17:19 Freq: Status: Active Protocol: Document 09/20/20 09:51 LRN (Rec: 09/20/20 10:35 LRN [id number]) Physical Therapy Assessment Goals Four Impairment Urinary continence w/triggers (getting out of car, walking into home) Short Term Goal (STG) Pt will be educated in Urge delay technique. STG Duration 09/20/20 (09/13/20: MET GOAL ) [facility] Goal (LTG) Pt will be able to control her urinary incontinence in the presence of triggers (getting out of car and walking into her house). LTG Duration 12/05/20 Three Impairment weakness of PF and core Short Term Goal (STG) Pt will demonstrate improved PF strength of at least 3/5 and with LE muscle testing of a core strength of at least 3+ /5. STG Duration 10/1820 [facility] Goal (LTG) Pt will be able to delay urge to urinate in order to make it to bathroom getting up first in the morning. LTG Duration 12/05/20 Two Impairment Assymetry of hip mob and assymetry of pelvic positioning Short Term Goal (STG) Pt will improve symmetry of hip rotator symmetry. STG Duration 10/18/20 [facility] Goal (LTG) Pt will demonstrate improved symmetry of pelvic positioning . LTG Duration 12/05/20 One Impairment Pt lacks an independent self care HEP. [employer] Goal (LTG) Pt will be independent and consistent with a self care HEP LTG Duration 12/05/20 (09/13/20: Progressing) Progress Towards Goals Progress Comments Pt able to do a 6 sec breath in/out. Assessment Summary Assessment Pt forgot her vaginal electrode; therefore unable to do EMG biofeedback. Tried adding PF contraction to roll in/out exercise, but pt not able to coordinate. Per bladder diary pt is having less episodes of leakage with use of defer technique (pt is well aware). She appears to use fluid avoidance to decrease voiding times. It is questionable how accurate her bladder diary is because her fluid input is below average and sometimes she has extremely long times between voiding and sometimes voiding every two hours, otherwise she appears to be voiding normally every 3-4 hrs. She has appeared to have cut down on her intake of caffeine and soda drinks. Physical Therapy Plan Frequency and Duration Frequency of Treatment 1x/Week Plan of Care Start Date 09/06/20 Plan of Care End Date 12/05/20 Next Visit Focus/Plan Next Note Type Treatment Note Next Visit Plan Discuss proper PF care and educate in PF tissue health. Do EMG biofeedback assessment. Assess PF contraction coordination and strength/ relaxation per EMG biofeedback . Review LE roll in/out for addition of PF strengthening. Add to HEP: hip ROM ex's and hip AD strengthening. HEP for core strengthening exercise and address posture. Manual therapy for PF stretching due to tightness.
--- NOTE | 2020-10-04 12:26 | PT.OTN ---
Current Diagnoses Urge incontinence (10/04/20) Physical Therapy Treatment Note PT-OP-A Visit Information Start: 09/05/20 17:19 Freq: Status: Active Protocol: Document 10/04/20 09:52 LRN (Rec: 10/04/20 10:38 LRN [id number]) Out-Patient Physical Therapy Visit Information Visit Information Visit Type Treatment Note Visit Start Time 09:52 Visit Stop Time 10:38 Total Visit Minutes 46 Visit Number 4 Evaluation Information Evaluation Date 09/06/20 Precautions Precautions Depression, Controlled HBP PT-OP-B Current Condition Start: 09/05/20 17:19 Freq: Status: Active Protocol: Document 09/06/20 10:47 LRN (Rec: 09/06/20 12:37 LRN [id number]) Current Condition History of Current Condition Onset Date 6 yrs ago Current Complaints Incontinence with a strong urge Prior Treatments and Tests Physical therapy 2 yrs ago, but not able to complete due to insurance limit. Chiropractic treatment 2x/year Future Testing and Treatments Planned Sleep study. Developmental History Developmental History Had 1 son that was set up for adoption in 1988. was without complications except possible hemorrhaging Treatment Goals Patient/Caregiver Goals Pt goal is to gain control over bladder. To eliminate incontinence To be able to delay to make it to bathroom. 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 Current Functional Impairments (Reported) Functional Limitations- ADL's Pt not able to go outside the home without use of maxi-pad due to fear of loss of urine. Functional Limitations- Other Has history of R sciatic pain, R LBP, UBP. Personal Factors Other Personal Factors That May Effect Lives alone. Therapy/Recovery Endomorphic body type. PT-OP-C Subjective Start: 09/05/20 17:19 Freq: Status: Active Protocol: Document 10/04/20 09:52 LRN (Rec: 10/04/20 10:38 LRN [id number]) OP-PT Subjective Patient Comments Patient Comments Daytimes are better because no as much leakage and can get to the bathroom most of the time. Nighttime is not good because peeing in bed and getting up 3x/night. PT-OP-I Pelvic Floor Start: 09/05/20 17:19 Freq: Status: Active Protocol: Document 10/04/20 09:52 LRN (Rec: 10/04/20 10:38 LRN [id number]) Pelvic Floor Assessment SEMG (uV) Baseline 1.8 Quick Contraction 11.6 10 Second Contraction 7.4 Recruitment Pattern Good Relaxation Fair Holding Poor/Slow Stability of Hold Poor/Slow SEMG Stability of Rest Fair Contraction Ability Voluntary Contraction Moderate Manual Muscle Testing Left 3 Manual Muscle Testing Right 2 Manual Muscle Testing Anterior 1 Manual Muscle Testing Posterior 3 Muscle Endurance (Seconds) 1 Comments Pelvic Floor Comments Pt supine: legs extended. QUICK FLICKS; 10 Reps resting is 3.8 uVs, 20 resps Work is 10.5uVs, rest is 3.2 uVs. LONG HOLDS: 10 reps Rest is 2.9 uVs 20 reps Work is 6.8 uVs, rest is 2.9 uVs. Holding: Initial contraction 20 uVs hold for 1-2 secs, f/b drop of 10-5 to 2 at enduVs. Relaxation: Leonel on relaxation PT-OP-J Posture/Palpation/Skin Start: 09/05/20 17:19 Freq: Status: Active Protocol: Document 09/06/20 10:47 LRN (Rec: 09/06/20 12:37 LRN [id number]) Posture Evaluation Position Standing Evaluation View All positions Head/C-Spine Posture C-Spine Flattened T-Spine Posture Flattened L-Spine Posture Increased Lordosis Pelvis Posture Anteriorly Tilted,(R) Iliac Crest Superior,(R) PSIS Posterior Weight Distribution Balanced Ankle/Foot Posture (L) Pronated PT-OP-K Range of Motion Start: 09/05/20 17:19 Freq: Status: Active Protocol: Document 09/06/20 10:47 LRN (Rec: 09/06/20 12:37 LRN [id number]) Lumbar Spine Range of Motion Lumbar Spine Active Degrees Testing Position Standing Flexion 70 Extension 25 Rotation Left 20 Rotation Right 5 Lateral Flexion Left 20 Lateral Flexion Right 10 ROM Limitations Soft Tissue Tightness Hip Goniometric Range of Motion Hip Right Passive Testing Position Supine Internal Rotation 20 External Rotation 45 Comments ROM: not formally assessed. Left Passive Testing Position Supine Internal Rotation 10 External Rotation 60 Comments ROM: not formally assessed. PT-OP-M Strength Start: 09/05/20 17:19 Freq: Status: Active Protocol: Document 09/06/20 10:47 LRN (Rec: 09/06/20 12:37 LRN [id number]) Trunk Strength Trunk Manual Muscle Testing Testing Position Supine Core Stabilization Pt not able to maintain core stability (weak core R rot) with MMT leg on L side. Hip Strength Hip Manual Muscle Testing Right Flexion (L2) 4+ Good+ Adduction 4+ Good+ Comments Hip strength is 5/5 except as indicated above. Left Adduction 4+ Good+ Comments Hip strength is 5/5 except as indicated above. PT-OP-Q Treatments Start: 09/05/20 17:19 Freq: Status: Active Protocol: Document 10/04/20 09:52 LRN (Rec: 10/04/20 10:38 LRN [id number]) Therapeutic Exercises Supine Exercises PF Long Holds Supine Exercise Name Long Holds w/training for isolation of PF contraction Reps/Minutes 12' Comments Legs extended, EMG assessment PF Quick Flicks Supine Exercise Name Quick Flicks w/training for isolation of PF contraction Reps/Minutes 8' Comments Legs extended, EMG assessment LE roll in/outs Supine Exercise Name LE roll in/out w/o and w/deep breathing & added PF contraction Side bilateral Reps/Minutes 15' Comments Training f/b addition to LE: breathing & PF, not able to coordinate w/PF. Deep Breathing Supine Exercise Name Deep Breathing training sitting and supine Reps/Minutes 5' Comments Relaxation to start f/b deep breathing PT-OP-T Assessment and Plan Start: 09/05/20 17:19 Freq: Status: Active Protocol: Document 10/04/20 09:52 LRN (Rec: 10/04/20 10:38 LRN [id number]) Physical Therapy Assessment Goals Four Impairment Urinary continence w/triggers (getting out of car, walking into home) Short Term Goal (STG) Pt will be educated in Urge delay technique. STG Duration 09/20/20 (09/13/20: MET GOAL ) Shelter Goal (LTG) Pt will be able to control her urinary incontinence in the presence of triggers (getting out of car and walking into her house). LTG Duration 12/05/20 Three Impairment weakness of PF and core Short Term Goal (STG) Pt will demonstrate improved PF strength of at least 3/5 and with LE muscle testing of a core strength of at least 3+ /5. STG Duration 10/1820 Key Ringer Goal (LTG) Pt will be able to delay urge to urinate in order to make it to bathroom getting up first in the morning. LTG Duration 12/05/20 Two Impairment Assymetry of hip mob and assymetry of pelvic positioning Short Term Goal (STG) Pt will improve symmetry of hip rotator symmetry. STG Duration 10/18/20 Key Ringer Goal (LTG) Pt will demonstrate improved symmetry of pelvic positioning . LTG Duration 12/05/20 One Impairment Pt lacks an independent self care HEP. Shelter Goal (LTG) Pt will be independent and consistent with a self care HEP LTG Duration 12/05/20 (09/13/20: Progressing) Assessment Summary Assessment Very poor endurance hold of 1- 2 secs. Initial contraction strength is strong, but quickly fades, with holding achievable at 25-50% of initial contraction strength. Pt is able to perform LE roll in/outs, but not able to coordinate including a PF contraction. Physical Therapy Plan Frequency and Duration Frequency of Treatment 1x/Week Plan of Care Start Date 09/06/20 Plan of Care End Date 12/05/20 Next Visit Focus/Plan Next Note Type Treatment Note Next Visit Plan Discuss proper PF care and educate in PF tissue health. Manual PF assessment for need of PF stretching ?due to tightness. Try E-Stim for relaxation or for awareness training of proper PF contraction. Review LE roll in/out/with PF strengthening. Add to HEP: hip ROM ex's and hip AD strengthening. HEP for core strengthening exercise and address posture.
--- NOTE | 2020-10-15 09:03 | PT.OTN ---
Current Diagnoses Urge incontinence (10/15/20) Physical Therapy Treatment Note PT-OP-A Visit Information Start: 09/05/20 17:19 Freq: Status: Active Protocol: Document 10/15/20 08:16 LRN (Rec: 10/15/20 09:01 LRN [id number]) Out-Patient Physical Therapy Visit Information Visit Information Visit Type Treatment Note Visit Start Time 08:16 Visit Stop Time 08:57 Total Visit Minutes 41 Visit Number 5 Evaluation Information Evaluation Date 09/06/20 Precautions Precautions Depression, Controlled HBP PT-OP-B Current Condition Start: 09/05/20 17:19 Freq: Status: Active Protocol: Document 09/06/20 10:47 LRN (Rec: 09/06/20 12:37 LRN [id number]) Current Condition History of Current Condition Onset Date 6 yrs ago Current Complaints Incontinence with a strong urge Prior Treatments and Tests Physical therapy 2 yrs ago, but not able to complete due to insurance limit. Chiropractic treatment 2x/year Future Testing and Treatments Planned Sleep study. Developmental History Developmental History Had 1 son that was set up for adoption in 1988. was without complications except possible hemorrhaging Treatment Goals Patient/Caregiver Goals Pt goal is to gain control over bladder. To eliminate incontinence To be able to delay to make it to bathroom. 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 Current Functional Impairments (Reported) Functional Limitations- ADL's Pt not able to go outside the home without use of maxi-pad due to fear of loss of urine. Functional Limitations- Other Has history of R sciatic pain, R LBP, UBP. Personal Factors Other Personal Factors That May Effect Lives alone. Therapy/Recovery Endomorphic body type. PT-OP-C Subjective Start: 09/05/20 17:19 Freq: Status: Active Protocol: Document 10/15/20 08:16 LRN (Rec: 10/15/20 09:01 LRN [id number]) OP-PT Subjective Patient Comments Patient Comments States working on building up drinking more water and feels the nighttime is worse because when waking up urinating and must grab a pad rather than risk urinating on carpet. Usually occurs at the 2nd or 3rd time she wakes up. I don 't sleep heavy. PT-OP-I Pelvic Floor Start: 09/05/20 17:19 Freq: Status: Active Protocol: Document 10/04/20 09:52 LRN (Rec: 10/04/20 10:38 LRN [id number]) Pelvic Floor Assessment SEMG (uV) Baseline 1.8 Quick Contraction 11.6 10 Second Contraction 7.4 Recruitment Pattern Good Relaxation Fair Holding Poor/Slow Stability of Hold Poor/Slow SEMG Stability of Rest Fair Contraction Ability Voluntary Contraction Moderate Manual Muscle Testing Left 3 Manual Muscle Testing Right 2 Manual Muscle Testing Anterior 1 Manual Muscle Testing Posterior 3 Muscle Endurance (Seconds) 1 Comments Pelvic Floor Comments Pt supine: legs extended. QUICK FLICKS; 10 Reps resting is 3.8 uVs, 20 resps Work is 10.5uVs, rest is 3.2 uVs. LONG HOLDS: 10 reps Rest is 2.9 uVs 20 reps Work is 6.8 uVs, rest is 2.9 uVs. Holding: Initial contraction 20 uVs hold for 1-2 secs, f/b drop of 10-5 to 2 at enduVs. Relaxation: Leonel on relaxation PT-OP-J Posture/Palpation/Skin Start: 09/05/20 17:19 Freq: Status: Active Protocol: Document 09/06/20 10:47 LRN (Rec: 09/06/20 12:37 LRN [id number]) Posture Evaluation Position Standing Evaluation View All positions Head/C-Spine Posture C-Spine Flattened T-Spine Posture Flattened L-Spine Posture Increased Lordosis Pelvis Posture Anteriorly Tilted,(R) Iliac Crest Superior,(R) PSIS Posterior Weight Distribution Balanced Ankle/Foot Posture (L) Pronated PT-OP-K Range of Motion Start: 09/05/20 17:19 Freq: Status: Active Protocol: Document 09/06/20 10:47 LRN (Rec: 09/06/20 12:37 LRN [id number]) Lumbar Spine Range of Motion Lumbar Spine Active Degrees Testing Position Standing Flexion 70 Extension 25 Rotation Left 20 Rotation Right 5 Lateral Flexion Left 20 Lateral Flexion Right 10 ROM Limitations Soft Tissue Tightness Hip Goniometric Range of Motion Hip Right Passive Testing Position Supine Internal Rotation 20 External Rotation 45 Comments ROM: not formally assessed. Left Passive Testing Position Supine Internal Rotation 10 External Rotation 60 Comments ROM: not formally assessed. PT-OP-M Strength Start: 09/05/20 17:19 Freq: Status: Active Protocol: Document 09/06/20 10:47 LRN (Rec: 09/06/20 12:37 LRN [id number]) Trunk Strength Trunk Manual Muscle Testing Testing Position Supine Core Stabilization Pt not able to maintain core stability (weak core R rot) with MMT leg on L side. Hip Strength Hip Manual Muscle Testing Right Flexion (L2) 4+ Good+ Adduction 4+ Good+ Comments Hip strength is 5/5 except as indicated above. Left Adduction 4+ Good+ Comments Hip strength is 5/5 except as indicated above. PT-OP-Q Treatments Start: 09/05/20 17:19 Freq: Status: Active Protocol: Document 10/15/20 08:16 LRN (Rec: 10/15/20 09:01 LRN [id number]) Therapeutic Exercises Supine Exercises LE lymph active program Supine Exercise Name LE lymph active program Reps/Minutes 15' Comments Extra time for initial training. LE roll in/outs Supine Exercise Name LE roll in/out w/o and w/deep breathing & added PF contraction Side bilateral Reps/Minutes 12' Comments Training f/b addition to LE: breathing & PF, not able to coordinate w/PF. Deep Breathing Supine Exercise Name Deep Breathing training sitting and supine Reps/Minutes 3' Comments 5 sec breaths, pt feeling deep breathing, but abdomen cuing needed Neuro Re-Education Treatment Other Activities PF E-Stim Details PF training with E-Stim Reps/Duration 5' ex, 3' set up Comments Intensity 13 10:10 50 pps Self-Care/Home Management Treatment Education Patient Education Home Exercise Program Activities Self-Care/Home Management Activities Issued & reviewed HEP: LE lymph massage to do 45-30' before bedtime. PT-OP-T Assessment and Plan Start: 09/05/20 17:19 Freq: Status: Active Protocol: Document 10/15/20 08:16 LRN (Rec: 10/15/20 09:01 LRN [id number]) Physical Therapy Assessment Goals Four Impairment Urinary continence w/triggers (getting out of car, walking into home) Short Term Goal (STG) Pt will be educated in Urge delay technique. STG Duration 09/20/20 (09/13/20: MET GOAL ) Senior Living Goal (LTG) Pt will be able to control her urinary incontinence in the presence of triggers (getting out of car and walking into her house). LTG Duration 12/05/20 Three Impairment weakness of PF and core Short Term Goal (STG) Pt will demonstrate improved PF strength of at least 3/5 and with LE muscle testing of a core strength of at least 3+ /5. STG Duration 10/1820 Senior Living Goal (LTG) Pt will be able to delay urge to urinate in order to make it to bathroom getting up first in the morning. LTG Duration 12/05/20 Two Impairment Assymetry of hip mob and assymetry of pelvic positioning Short Term Goal (STG) Pt will improve symmetry of hip rotator symmetry. STG Duration 10/18/20 Ladies' Locker Room Attendant Goal (LTG) Pt will demonstrate improved symmetry of pelvic positioning . LTG Duration 12/05/20 One Impairment Pt lacks an independent self care HEP. Senior Living Goal (LTG) Pt will be independent and consistent with a self care HEP LTG Duration 12/05/20 (09/13/20: Progressing) Progress Towards Goals Progress Comments + awareness training with use of E-Stim Assessment Summary Assessment Shallow abdominal movement with deep breathing that improved with phys & v. cuing. Pt is quick to learn LE lymph massage program. + response to E-Stim to PF with good awareness training. Physical Therapy Plan Frequency and Duration Frequency of Treatment 1x/Week Plan of Care Start Date 09/06/20 Plan of Care End Date 12/05/20 Next Visit Focus/Plan Next Note Type Treatment Note Next Visit Plan Review LE lymph massage. Discuss proper PF care and educate in PF tissue health. Manual PF assessment for need of PF stretching ?due to tightness. Try E-Stim for relaxation and awareness training of proper PF contraction. Add to HEP: hip ROM ex's and hip AD strengthening. HEP for core strengthening exercise and address posture.
--- NOTE | 2020-10-29 08:38 | PT-OP ANOTE ---
No show for appt. Msg left notifying pt of next appointment and requesting call back if unable to attend.
--- NOTE | 2020-11-05 10:23 | PT.OTN ---
Current Diagnoses Urge incontinence (11/05/20) Physical Therapy Treatment Note PT-OP-A Visit Information Start: 09/05/20 17:19 Freq: Status: Active Protocol: Document 11/05/20 08:21 LRN (Rec: 11/05/20 09:02 LRN [id number]) Out-Patient Physical Therapy Visit Information Visit Information Visit Type Treatment Note Visit Start Time 08:21 Visit Stop Time 09:02 Total Visit Minutes 41 Visit Number 6 Evaluation Information Evaluation Date 09/06/20 Precautions Precautions Depression, Controlled HBP PT-OP-B Current Condition Start: 09/05/20 17:19 Freq: Status: Active Protocol: Document 09/06/20 10:47 LRN (Rec: 09/06/20 12:37 LRN [id number]) Current Condition History of Current Condition Onset Date 6 yrs ago Current Complaints Incontinence with a strong urge Prior Treatments and Tests Physical therapy 2 yrs ago, but not able to complete due to insurance limit. Chiropractic treatment 2x/year Future Testing and Treatments Planned Sleep study. Developmental History Developmental History Had 1 son that was set up for adoption in 1988. was without complications except possible hemorrhaging Treatment Goals Patient/Caregiver Goals Pt goal is to gain control over bladder. To eliminate incontinence To be able to delay to make it to bathroom. 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 Current Functional Impairments (Reported) Functional Limitations- ADL's Pt not able to go outside the home without use of maxi-pad due to fear of loss of urine. Functional Limitations- Other Has history of R sciatic pain, R LBP, UBP. Personal Factors Other Personal Factors That May Effect Lives alone. Therapy/Recovery Endomorphic body type. PT-OP-C Subjective Start: 09/05/20 17:19 Freq: Status: Active Protocol: Document 11/05/20 08:21 LRN (Rec: 11/05/20 09:02 LRN [id number]) OP-PT Subjective Patient Comments Patient Comments States she didn't remember anything about the LE exercises before bedtime. PT-OP-I Pelvic Floor Start: 09/05/20 17:19 Freq: Status: Active Protocol: Document 11/05/20 08:21 LRN (Rec: 11/05/20 09:02 LRN [id number]) Pelvic Floor Assessment SEMG (uV) Baseline 0.8 10 Second Contraction 2.8 Comments Pelvic Floor Comments Long Holds: 10 reps: avg rest is 0.8 Legs on Bolster, Isolated PF contractions. PT-OP-J Posture/Palpation/Skin Start: 09/05/20 17:19 Freq: Status: Active Protocol: Document 09/06/20 10:47 LRN (Rec: 09/06/20 12:37 LRN [id number]) Posture Evaluation Position Standing Evaluation View All positions Head/C-Spine Posture C-Spine Flattened T-Spine Posture Flattened L-Spine Posture Increased Lordosis Pelvis Posture Anteriorly Tilted,(R) Iliac Crest Superior,(R) PSIS Posterior Weight Distribution Balanced Ankle/Foot Posture (L) Pronated PT-OP-K Range of Motion Start: 09/05/20 17:19 Freq: Status: Active Protocol: Document 09/06/20 10:47 LRN (Rec: 09/06/20 12:37 LRN [id number]) Lumbar Spine Range of Motion Lumbar Spine Active Degrees Testing Position Standing Flexion 70 Extension 25 Rotation Left 20 Rotation Right 5 Lateral Flexion Left 20 Lateral Flexion Right 10 ROM Limitations Soft Tissue Tightness Hip Goniometric Range of Motion Hip Right Passive Testing Position Supine Internal Rotation 20 External Rotation 45 Comments ROM: not formally assessed. Left Passive Testing Position Supine Internal Rotation 10 External Rotation 60 Comments ROM: not formally assessed. PT-OP-M Strength Start: 09/05/20 17:19 Freq: Status: Active Protocol: Document 09/06/20 10:47 LRN (Rec: 09/06/20 12:37 LRN [id number]) Trunk Strength Trunk Manual Muscle Testing Testing Position Supine Core Stabilization Pt not able to maintain core stability (weak core R rot) with MMT leg on L side. Hip Strength Hip Manual Muscle Testing Right Flexion (L2) 4+ Good+ Adduction 4+ Good+ Comments Hip strength is 5/5 except as indicated above. Left Adduction 4+ Good+ Comments Hip strength is 5/5 except as indicated above. PT-OP-Q Treatments Start: 09/05/20 17:19 Freq: Status: Active Protocol: Document 11/05/20 08:21 LRN (Rec: 11/05/20 09:02 LRN [id number]) Therapeutic Exercises Supine Exercises LE lymph active program Supine Exercise Name LE lymph active program Reps/Minutes 10' Comments Extra time for review and teaching proper stroking. LE roll in/outs Supine Exercise Name LE roll in/out w/o and w/deep breathing & added PF contraction Side bilateral Reps/Minutes 3' Comments Training f/b addition to LE: breathing & PF, not able to coordinate w/PF. Sidelying Exercises Hip AD/PF contraction Sidelying Exercise Name Hip AD w/long hold PF contraction Side bilateral Reps/Minutes 4 Neuro Re-Education Treatment Other Activities PF E-Stim Details PF Long Hold training with Biofeedback Reps/Duration 10' ex Self-Care/Home Management Treatment Education Other Education 8' Educated pt on General vulvar care and genital hygiene. Activities Self-Care/Home Management Activities Issued & reviewed HEP: Hip AD with v. instructions to hold PF contraction over 10 reps. PT-OP-T Assessment and Plan Start: 09/05/20 17:19 Freq: Status: Active Protocol: Document 11/05/20 08:21 LRN (Rec: 11/05/20 09:02 LRN [id number]) Physical Therapy Assessment Goals Four Impairment Urinary continence w/triggers (getting out of car, walking into home) Short Term Goal (STG) Pt will be educated in Urge delay technique. STG Duration 09/20/20 (09/13/20: MET GOAL ) Care Home Goal (LTG) Pt will be able to control her urinary incontinence in the presence of triggers (getting out of car and walking into her house). LTG Duration 12/05/20 Three Impairment weakness of PF and core Short Term Goal (STG) Pt will demonstrate improved PF strength of at least 3/5 and with LE muscle testing of a core strength of at least 3+ /5. STG Duration 10/1820 Care Home Goal (LTG) Pt will be able to delay urge to urinate in order to make it to bathroom getting up first in the morning. LTG Duration 12/05/20 Two Impairment Assymetry of hip mob and assymetry of pelvic positioning Short Term Goal (STG) Pt will improve symmetry of hip rotator symmetry. STG Duration 10/18/20 Care Home Goal (LTG) Pt will demonstrate improved symmetry of pelvic positioning . LTG Duration 12/05/20 One Impairment Pt lacks an independent self care HEP. Traffic Assistant Goal (LTG) Pt will be independent and consistent with a self care HEP LTG Duration 12/05/20 (11/05/19: Progressing) Progress Towards Goals Progress Comments Progressed HEP: Hip AD strengthening. Pt's ability to hold a PF contraction (lower intensity) at a steadier rate improved with EMG biofeedback training. Assessment Summary Assessment Good understanding of LE lymph ex program and with added hip AD ex. Per EMG Biofeedback, pt is very weak in PF with biofeedback during isolated PF contractions. She was able to better hold the contraction at 50-75% effort. Physical Therapy Plan Frequency and Duration Frequency of Treatment 1x/Week Plan of Care Start Date 09/06/20 Plan of Care End Date 12/05/20 Next Visit Focus/Plan Next Note Type Treatment Note Next Visit Plan Review LE lymph massage and assess response to performing 1 hr before bedtime. Review hip AD/PF strengthening ex. Manual PF assessment for need of PF stretching ?due to tightness. E-Stim for relaxation and awareness training of proper PF contraction. Add to HEP: hip ROM ex's. HEP for core strengthening exercise and address posture.
--- NOTE | 2020-11-12 12:19 | PT.OTN ---
Current Diagnoses Urge incontinence (11/12/20) Physical Therapy Treatment Note PT-OP-A Visit Information Start: 09/05/20 17:19 Freq: Status: Active Protocol: Document 11/12/20 08:16 LRN (Rec: 11/12/20 09:28 LRN [id number]) Out-Patient Physical Therapy Visit Information Visit Information Visit Type Treatment Note Visit Start Time 08:16 Visit Stop Time 09:04 Total Visit Minutes 48 Visit Number 7 Evaluation Information Evaluation Date 09/06/20 Precautions Precautions Depression, Controlled HBP PT-OP-B Current Condition Start: 09/05/20 17:19 Freq: Status: Active Protocol: Document 09/06/20 10:47 LRN (Rec: 09/06/20 12:37 LRN [id number]) Current Condition History of Current Condition Onset Date 6 yrs ago Current Complaints Incontinence with a strong urge Prior Treatments and Tests Physical therapy 2 yrs ago, but not able to complete due to insurance limit. Chiropractic treatment 2x/year Future Testing and Treatments Planned Sleep study. Developmental History Developmental History Had 1 son that was set up for adoption in 1988. was without complications except possible hemorrhaging Treatment Goals Patient/Caregiver Goals Pt goal is to gain control over bladder. To eliminate incontinence To be able to delay to make it to bathroom. 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 Current Functional Impairments (Reported) Functional Limitations- ADL's Pt not able to go outside the home without use of maxi-pad due to fear of loss of urine. Functional Limitations- Other Has history of R sciatic pain, R LBP, UBP. Personal Factors Other Personal Factors That May Effect Lives alone. Therapy/Recovery Endomorphic body type. PT-OP-C Subjective Start: 09/05/20 17:19 Freq: Status: Active Protocol: Document 11/12/20 08:16 LRN (Rec: 11/12/20 09:28 LRN [id number]) OP-PT Subjective Patient Comments Patient Comments States she was able to skip the middle of the night voiding 2x, so woke 2x/night. Using urge technique to get into the house is improving, not able to control 2x/week. PT-OP-I Pelvic Floor Start: 09/05/20 17:19 Freq: Status: Active Protocol: Document 11/05/20 08:21 LRN (Rec: 11/05/20 09:02 LRN [id number]) Pelvic Floor Assessment SEMG (uV) Baseline 0.8 10 Second Contraction 2.8 Comments Pelvic Floor Comments Long Holds: 10 reps: avg rest is 0.8 Legs on Bolster, Isolated PF contractions. PT-OP-J Posture/Palpation/Skin Start: 09/05/20 17:19 Freq: Status: Active Protocol: Document 09/06/20 10:47 LRN (Rec: 09/06/20 12:37 LRN [id number]) Posture Evaluation Position Standing Evaluation View All positions Head/C-Spine Posture C-Spine Flattened T-Spine Posture Flattened L-Spine Posture Increased Lordosis Pelvis Posture Anteriorly Tilted,(R) Iliac Crest Superior,(R) PSIS Posterior Weight Distribution Balanced Ankle/Foot Posture (L) Pronated PT-OP-K Range of Motion Start: 09/05/20 17:19 Freq: Status: Active Protocol: Document 09/06/20 10:47 LRN (Rec: 09/06/20 12:37 LRN [id number]) Lumbar Spine Range of Motion Lumbar Spine Active Degrees Testing Position Standing Flexion 70 Extension 25 Rotation Left 20 Rotation Right 5 Lateral Flexion Left 20 Lateral Flexion Right 10 ROM Limitations Soft Tissue Tightness Hip Goniometric Range of Motion Hip Right Passive Testing Position Supine Internal Rotation 20 External Rotation 45 Comments ROM: not formally assessed. Left Passive Testing Position Supine Internal Rotation 10 External Rotation 60 Comments ROM: not formally assessed. PT-OP-M Strength Start: 09/05/20 17:19 Freq: Status: Active Protocol: Document 09/06/20 10:47 LRN (Rec: 09/06/20 12:37 LRN [id number]) Trunk Strength Trunk Manual Muscle Testing Testing Position Supine Core Stabilization Pt not able to maintain core stability (weak core R rot) with MMT leg on L side. Hip Strength Hip Manual Muscle Testing Right Flexion (L2) 4+ Good+ Adduction 4+ Good+ Comments Hip strength is 5/5 except as indicated above. Left Adduction 4+ Good+ Comments Hip strength is 5/5 except as indicated above. PT-OP-Q Treatments Start: 09/05/20 17:19 Freq: Status: Active Protocol: Document 11/12/20 08:16 LRN (Rec: 11/12/20 09:28 LRN [id number]) Therapeutic Exercises Supine Exercises Lateral hip stretch Supine Exercise Name Lateral hip stretch Side left Reps/Minutes 2' Comments Extra time to teach stretch, phy cuing and assist needed. Internal Rotator stretch Supine Exercise Name Knee pulled to opposite shoulder Side left Reps/Minutes 3' Comments Extra time to teach stretch, phy cuing and assist needed. Fig 4 stetch Supine Exercise Name Fig 4 stretch Side right Reps/Minutes 3' Comments Extra time to teach stretch, phy cuing and assist needed. Sidelying Exercises Hip AD/PF contraction Sidelying Exercise Name Hip AD w/long hold PF contraction Side bilateral Reps/Minutes 10' Comments Started with lift for proper breathing, f/b lift/PF contraction/breathing. Neuro Re-Education Treatment Other Activities EMG Biofeedback long hold training Details EMG Biofeedback long hold training Reps/Duration 19' Comments Hold 10 sec. Self-Care/Home Management Treatment Education Other Education Reviewed verbally lymph care routine and PF care. Activities Self-Care/Home Management Activities Issued & reviewed HEP: Hip stretches: R ER, L IR's & lateral hip stretch. PT-OP-T Assessment and Plan Start: 09/05/20 17:19 Freq: Status: Active Protocol: Document 11/12/20 08:16 LRN (Rec: 11/12/20 09:28 LRN [id number]) Physical Therapy Assessment Goals Four Impairment Urinary continence w/triggers (getting out of car, walking into home) Short Term Goal (STG) Pt will be educated in Urge delay technique. STG Duration 09/20/20 (09/13/20: MET GOAL ) Refinery Operator Reforming Unit Goal (LTG) Pt will be able to control her urinary incontinence in the presence of triggers (getting out of car and walking into her house). (11/12/20: 2x/week not able to control urge when stepping into the house) LTG Duration 12/05/20 (11/12/20: Improving ) Three Impairment weakness of PF and core Short Term Goal (STG) Pt will demonstrate improved PF strength of at least 3/5 and with LE muscle testing of a core strength of at least 3+ /5. STG Duration 10/1820 Custodial Goal (LTG) Pt will be able to delay urge to urinate in order to make it to bathroom getting up first in the morning. LTG Duration 12/05/20 Two Impairment Assymetry of hip mob and assymetry of pelvic positioning Short Term Goal (STG) Pt will improve symmetry of hip rotator symmetry. STG Duration 10/18/20 Custodial Goal (LTG) Pt will demonstrate improved symmetry of pelvic positioning . LTG Duration 12/05/20 One Impairment Pt lacks an independent self care HEP. Refinery Operator Reforming Unit Goal (LTG) Pt will be independent and consistent with a self care HEP LTG Duration 12/05/20 (11/12/20: Progressing) Progress Towards Goals Progress Comments Per EMG biofeedback pt was able to hold a PF contraction only a couple seconds to start , but with training showed ability to hold 3-4 seconds. Assessment Summary Assessment Pt needed review of hip AD w/ PF contraction due to forgetting about exercise. After training pt showed much improved strength of contraction using EMG biofeedback for neuromuscular retraining. She had most difficulty with proper breathing during exercise. Physical Therapy Plan Frequency and Duration Frequency of Treatment 1x/Week Plan of Care Start Date 09/06/20 Plan of Care End Date 12/05/20 Next Visit Focus/Plan Next Note Type Treatment Note Next Visit Plan Review HEP: hip ROM ex's. HEP for core strengthening exercise and address posture. Manual PF assessment for need of PF stretching ?due to tightness. E-Stim for relaxation, strengthening, and awareness training of proper PF contraction (pulling electrode inward, not pushing outward).
--- NOTE | 2020-11-19 17:09 | PT.OTN ---
Current Diagnoses Urge incontinence (11/19/20) Physical Therapy Treatment Note PT-OP-A Visit Information Start: 09/05/20 17:19 Freq: Status: Active Protocol: Document 11/19/20 08:15 LRN (Rec: 11/19/20 09:08 LRN [id number]) Out-Patient Physical Therapy Visit Information Visit Information Visit Type Treatment Note Visit Start Time 08:15 Visit Stop Time 09:07 Total Visit Minutes 52 Visit Number 8 Evaluation Information Evaluation Date 09/06/20 Precautions Precautions Depression, Controlled HBP PT-OP-B Current Condition Start: 09/05/20 17:19 Freq: Status: Active Protocol: Document 09/06/20 10:47 LRN (Rec: 09/06/20 12:37 LRN [id number]) Current Condition History of Current Condition Onset Date 6 yrs ago Current Complaints Incontinence with a strong urge Prior Treatments and Tests Physical therapy 2 yrs ago, but not able to complete due to insurance limit. Chiropractic treatment 2x/year Future Testing and Treatments Planned Sleep study. Developmental History Developmental History Had 1 son that was set up for adoption in 1988. was without complications except possible hemorrhaging Treatment Goals Patient/Caregiver Goals Pt goal is to gain control over bladder. To eliminate incontinence To be able to delay to make it to bathroom. 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 Current Functional Impairments (Reported) Functional Limitations- ADL's Pt not able to go outside the home without use of maxi-pad due to fear of loss of urine. Functional Limitations- Other Has history of R sciatic pain, R LBP, UBP. Personal Factors Other Personal Factors That May Effect Lives alone. Therapy/Recovery Endomorphic body type. PT-OP-C Subjective Start: 09/05/20 17:19 Freq: Status: Active Protocol: Document 11/19/20 08:15 LRN (Rec: 11/19/20 09:08 LRN [id number]) OP-PT Subjective Patient Comments Patient Comments Still having problem with loss of urine when first getting out of bed, with a strong urge . Voidig 2s/night, sometimes 3x. PT-OP-I Pelvic Floor Start: 09/05/20 17:19 Freq: Status: Active Protocol: Document 11/19/20 08:15 LRN (Rec: 11/19/20 09:08 LRN [id number]) Pelvic Floor Assessment SEMG (uV) 10 Second Contraction 10.6 Comments Pelvic Floor Comments Long Holds: 10 reps: avg rest is 2.9 uV's. Required use of towel roll and bolster to keep electrode from pushing out. PT-OP-J Posture/Palpation/Skin Start: 09/05/20 17:19 Freq: Status: Active Protocol: Document 09/06/20 10:47 LRN (Rec: 09/06/20 12:37 LRN [id number]) Posture Evaluation Position Standing Evaluation View All positions Head/C-Spine Posture C-Spine Flattened T-Spine Posture Flattened L-Spine Posture Increased Lordosis Pelvis Posture Anteriorly Tilted,(R) Iliac Crest Superior,(R) PSIS Posterior Weight Distribution Balanced Ankle/Foot Posture (L) Pronated PT-OP-K Range of Motion Start: 09/05/20 17:19 Freq: Status: Active Protocol: Document 09/06/20 10:47 LRN (Rec: 09/06/20 12:37 LRN [id number]) Lumbar Spine Range of Motion Lumbar Spine Active Degrees Testing Position Standing Flexion 70 Extension 25 Rotation Left 20 Rotation Right 5 Lateral Flexion Left 20 Lateral Flexion Right 10 ROM Limitations Soft Tissue Tightness Hip Goniometric Range of Motion Hip Right Passive Testing Position Supine Internal Rotation 20 External Rotation 45 Comments ROM: not formally assessed. Left Passive Testing Position Supine Internal Rotation 10 External Rotation 60 Comments ROM: not formally assessed. PT-OP-M Strength Start: 09/05/20 17:19 Freq: Status: Active Protocol: Document 09/06/20 10:47 LRN (Rec: 09/06/20 12:37 LRN [id number]) Trunk Strength Trunk Manual Muscle Testing Testing Position Supine Core Stabilization Pt not able to maintain core stability (weak core R rot) with MMT leg on L side. Hip Strength Hip Manual Muscle Testing Right Flexion (L2) 4+ Good+ Adduction 4+ Good+ Comments Hip strength is 5/5 except as indicated above. Left Adduction 4+ Good+ Comments Hip strength is 5/5 except as indicated above. PT-OP-Q Treatments Start: 09/05/20 17:19 Freq: Status: Active Protocol: Document 11/19/20 08:15 LRN (Rec: 11/19/20 09:08 LRN [id number]) Therapeutic Exercises Supine Exercises TA tightening Supine Exercise Name TA tightening. Reps/Minutes 5x Lateral hip stretch Supine Exercise Name Lateral hip stretch Side left Reps/Minutes 2' Comments Extra time to teach stretch, phy cuing and assist needed. Internal Rotator stretch Supine Exercise Name Knee pulled to opposite shoulder Side left Reps/Minutes 3' Comments Extra time to teach stretch, phy cuing and assist needed. Fig 4 stetch Supine Exercise Name Fig 4 stretch Side right Reps/Minutes 3' Comments Extra time to teach stretch, phy cuing and assist needed. Sidelying Exercises TA tightening Sidelying Exercise Name TA tightening Side bilateral Reps/Minutes 5x each Comments L side is weaker than R Sitting Exercises Hip ER stretch Sitting Exercise Name Hip ER stretch Side right Reps/Minutes 2' Other Exercises Hands/knees TA Other Exercise Name TA tightening Reps/Minutes 5x Neuro Re-Education Treatment Other Activities EMG Biofeedback long hold training Details EMG Biofeedback long hold training Reps/Duration 16' Comments Hold 10 sec. Self-Care/Home Management Treatment Education Patient Education Home Exercise Program Activities Self-Care/Home Management Activities Issued & reviewed HEP: TA supine & 4 pt. PT-OP-T Assessment and Plan Start: 09/05/20 17:19 Freq: Status: Active Protocol: Document 11/19/20 08:15 LRN (Rec: 11/19/20 09:08 LRN [id number]) Physical Therapy Assessment Goals Four Impairment Urinary continence w/triggers (getting out of car, walking into home) Short Term Goal (STG) Pt will be educated in Urge delay technique. STG Duration 09/20/20 (09/13/20: MET GOAL ) Radiator Specialist Goal (LTG) Pt will be able to control her urinary incontinence in the presence of triggers (getting out of car and walking into her house). (11/12/20: 2x/week not able to control urge when stepping into the house) LTG Duration 12/05/20 (11/12/20: Improving ) Three Impairment weakness of PF and core Short Term Goal (STG) Pt will demonstrate improved PF strength of at least 3/5 and with LE muscle testing of a core strength of at least 3+ /5. STG Duration 10/1820 Halfway Goal (LTG) Pt will be able to delay urge to urinate in order to make it to bathroom getting up first in the morning. LTG Duration 12/05/20 Two Impairment Assymetry of hip mob and assymetry of pelvic positioning Short Term Goal (STG) Pt will improve symmetry of hip rotator symmetry. STG Duration 10/18/20 Radiator Specialist Goal (LTG) Pt will demonstrate improved symmetry of pelvic positioning . LTG Duration 12/05/20 One Impairment Pt lacks an independent self care HEP. Radiator Specialist Goal (LTG) Pt will be independent and consistent with a self care HEP. LTG Duration 12/05/20 (11/19/20: Progressing) Progress Towards Goals Progress Comments Improved ability to hold a PF contraction, up to 6 secs with use of biofeedback vs 1-2 secs initially. Assessment Summary Assessment Pt needed review of hip stretches to perform correctly . Pt able to do correctly after training. Per internal palpation the pt had no palpable Quick Flick or Long Hold. Pt required phys stim to obtain a PF contraction, then was able to contract. She has no palpable tenderness but may have tightness limiting strength of contraction. Pt is weaker on the L lateral wall than the right. Physical Therapy Plan Frequency and Duration Frequency of Treatment 1x/Week Plan of Care Start Date 09/06/20 Plan of Care End Date 12/05/20 Next Visit Focus/Plan Next Note Type Treatment Note Next Visit Plan Review HEP for core strengthening exercise (TA) and address posture. Manual PF assessment for need of PF stretching ?due to tightness in 2 visits. E-Stim for relaxation, strengthening, and awareness training of proper PF contraction (pulling electrode inward, not pushing outward). Note POC end date if further therapy needed, discuss with pt.
--- NOTE | 2020-12-03 08:27 | PT-OP ANOTE ---
Per phone conversation pt states she cancelled her appt per televox system due to another appointment.
--- NOTE | 2020-12-10 16:50 | PT.OTN ---
Current Diagnoses Urge incontinence (12/10/20) Physical Therapy Treatment Note PT-OP-A Visit Information Start: 09/05/20 17:19 Freq: Status: Active Protocol: Document 12/10/20 08:17 LRN (Rec: 12/10/20 09:05 LRN [id number]) Out-Patient Physical Therapy Visit Information Visit Information Visit Type Progress Note Visit Start Time 08:17 Visit Stop Time 09:03 Total Visit Minutes 46 Visit Number 9 Evaluation Information Evaluation Date 09/06/20 Precautions Precautions Depression, Controlled HBP PT-OP-B Current Condition Start: 09/05/20 17:19 Freq: Status: Active Protocol: Document 09/06/20 10:47 LRN (Rec: 09/06/20 12:37 LRN [id number]) Current Condition History of Current Condition Onset Date 6 yrs ago Current Complaints Incontinence with a strong urge Prior Treatments and Tests Physical therapy 2 yrs ago, but not able to complete due to insurance limit. Chiropractic treatment 2x/year Future Testing and Treatments Planned Sleep study. Developmental History Developmental History Had 1 son that was set up for adoption in 1988. was without complications except possible hemorrhaging Treatment Goals Patient/Caregiver Goals Pt goal is to gain control over bladder. To eliminate incontinence To be able to delay to make it to bathroom. 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 Current Functional Impairments (Reported) Functional Limitations- ADL's Pt not able to go outside the home without use of maxi-pad due to fear of loss of urine. Functional Limitations- Other Has history of R sciatic pain, R LBP, UBP. Personal Factors Other Personal Factors That May Effect Lives alone. Therapy/Recovery Endomorphic body type. PT-OP-C Subjective Start: 09/05/20 17:19 Freq: Status: Active Protocol: Document 12/10/20 08:17 LRN (Rec: 12/10/20 09:05 LRN [id number]) OP-PT Subjective Patient Comments Patient Comments Daytime better, having trouble at night. Told she has sleep apnea and is a shallow breather. Getting up 2x/night . Leaks first in AM sometimes , depending on the last time she woke in the night. Leaks if hasn't voided by 3am. Patient Questionnaires Pelvic Pain and Urgency/Frequency Patient Symptom Scale Pelvic Pain Score 6 PT-OP-I Pelvic Floor Start: 09/05/20 17:19 Freq: Status: Active Protocol: Document 12/10/20 08:17 LRN (Rec: 12/10/20 09:05 LRN [id number]) Pelvic Floor Assessment SEMG (uV) Quick Contraction 4.7 10 Second Contraction 4.6 Recruitment Pattern Good Relaxation Fair Holding Fair Stability of Hold Fair SEMG Stability of Rest Good Contraction Ability Voluntary Relaxation Weak Manual Muscle Testing Left 3 Manual Muscle Testing Right 2 Manual Muscle Testing Anterior 2 Manual Muscle Testing Posterior 3 Muscle Endurance (Seconds) 7 Number of Quick Contractions In 10 10 Seconds Comments Pelvic Floor Comments Quick; REST 2.1 Long Holds: 10 reps: avg rest is 1.2 uV's. Required use of towel roll and bolster to keep electrode from pushing out. PT-OP-J Posture/Palpation/Skin Start: 09/05/20 17:19 Freq: Status: Active Protocol: Document 09/06/20 10:47 LRN (Rec: 09/06/20 12:37 LRN [id number]) Posture Evaluation Position Standing Evaluation View All positions Head/C-Spine Posture C-Spine Flattened T-Spine Posture Flattened L-Spine Posture Increased Lordosis Pelvis Posture Anteriorly Tilted,(R) Iliac Crest Superior,(R) PSIS Posterior Weight Distribution Balanced Ankle/Foot Posture (L) Pronated PT-OP-K Range of Motion Start: 09/05/20 17:19 Freq: Status: Active Protocol: Document 12/10/20 08:17 LRN (Rec: 12/10/20 09:05 LRN [id number]) Hip Goniometric Range of Motion Hip Right Passive Internal Rotation 45 External Rotation 60 Left Passive Internal Rotation 30 External Rotation 60 PT-OP-M Strength Start: 09/05/20 17:19 Freq: Status: Active Protocol: Document 09/06/20 10:47 LRN (Rec: 09/06/20 12:37 LRN [id number]) Trunk Strength Trunk Manual Muscle Testing Testing Position Supine Core Stabilization Pt not able to maintain core stability (weak core R rot) with MMT leg on L side. Hip Strength Hip Manual Muscle Testing Right Flexion (L2) 4+ Good+ Adduction 4+ Good+ Comments Hip strength is 5/5 except as indicated above. Left Adduction 4+ Good+ Comments Hip strength is 5/5 except as indicated above. PT-OP-Q Treatments Start: 09/05/20 17:19 Freq: Status: Active Protocol: Document 12/10/20 08:17 LRN (Rec: 12/10/20 09:05 LRN [id number]) Therapeutic Exercises Supine Exercises Lateral hip stretch Supine Exercise Name Lateral hip stretch (2nd stretch on left) Side bilateral Reps/Minutes 6' Comments Extra time to teach stretch, phy cuing and assist needed. Internal Rotator stretch Supine Exercise Name Knee pulled to opposite shoulder (2nd stretch on left) Side bilateral Reps/Minutes 6' Comments Extra time to teach stretch, phy cuing and assist needed. Fig 4 stetch Supine Exercise Name Fig 4 stretch (2nd stretch on left) Side bilateral Reps/Minutes 6' Comments Extra time to teach stretch, phy cuing and assist needed. PF Long Holds Supine Exercise Name Long Holds w/training for isolation of PF contraction Reps/Minutes 12' Comments Legs on bolster, EMG assessment PF Quick Flicks Supine Exercise Name Quick Flicks w/training for isolation of PF contraction Reps/Minutes 8' Comments Legs on bolster, EMG assessment PT-OP-T Assessment and Plan Start: 09/05/20 17:19 Freq: Status: Active Protocol: Document 12/10/20 08:17 LRN (Rec: 12/10/20 09:05 LRN [id number]) Physical Therapy Assessment Rehab Potential Rehabilitation Potential Good Evaluation Complexity Number of Personal Factors/Comorbidities 1-2 Number of Body Systems Impaired 3 Clinical Presentation at Evaluation Evolving Impairments Impairments Coordination,Posture,ROM, Strength Goals Four Impairment Urinary continence w/triggers (getting out of car, walking into home) Short Term Goal (STG) Pt will be educated in Urge delay technique. STG Duration 01/10/20 (09/20/20: MET GOAL) Jail Goal (LTG) Pt will be able to control her urinary incontinence in the presence of triggers (getting out of car and walking into her house). (12/10/20: No leakage with getting out of car and walking into the house) LTG Duration 03/10/21 (12/10/20: MET GOAL) Three Impairment weakness of PF and core Short Term Goal (STG) Pt will demonstrate improved PF strength of at least 3/5 and with LE muscle testing of a core strength of at least 3+ /5. STG Duration 01/17/21 Jail Goal (LTG) Pt will be able to delay urge to urinate in order to make it to bathroom getting up first in the morning. LTG Duration 03/10/21 (12/10/20: Sometimes able to stay continent) Two Impairment Assymetry of hip mob and assymetry of pelvic positioning Short Term Goal (STG) Pt will improve symmetry of hip rotator symmetry. R ER65. IR45. STG Duration 01/17/21 Director Of [employer] Goal (LTG) Pt will demonstrate improved symmetry of pelvic positioning . LTG Duration 03/10/21 One Impairment Pt lacks an independent self care HEP. Jail Goal (LTG) Pt will be independent and consistent with a self care HEP. LTG Duration 03/10/21 (11/19/20: Progressing) Progress Towards Goals Progress Comments Improved hip ER mobility to 60 deg's bilaterally (ER was 45 R, 60 L). Assessment Summary Assessment Pt demonstrates today improved ability to isolate her PF contractions from substitute muscles of the hips and abdomen; therefore with PF strength testing her values are lower. Manual assessment shows imoproved PF strength in almost all areas. She has improved in her PF endurance and is able to perform 10 quick flicks and can now hold a PF contraction for 7 secs, but is able to hold a consistent hold for at least 3 secs. Pt hip mobility has not normalized since she has not been focusing her hip stretches on the tight side and shows poor techinque ( stretches too quickly). With review she seems to have a better understanding of reps/ time/side with stretches. The pt's PF contraction remains uncoordinated; therefore the pt would benefit from further therapy to improve the coordination of her contractions and the strength and endurance of contractions. Physical Therapy Plan Frequency and Duration Frequency of Treatment 1x/Week Plan of Care Start Date 12/10/20 Plan of Care End Date 03/10/21 Therapeutic Interventions Therapeutic Interventions Joint Mobilizations,Manual Therapy,Neuromuscular Re- education,Patient/Caregiver Education,Self-Care/Home Management,Soft Tissue Mobilization,Therapeutic Activities,Therapeutic Exercises Modalities Biofeedback,Cold Pack/Ice Massage,Electric Stimulation, Hot Packs Next Visit Focus/Plan Next Note Type Progress Note Next Visit Plan Review HEP for core strengthening exercise (TA) and address posture. E-Stim for relaxation, strengthening, and awareness training of proper coordinated PF contraction (pulling electrode inward, not pushing outward). Manual PF assessment for need of PF stretching ?due to tightness in 2 visits.
--- NOTE | 2020-12-10 16:50 | PT.OPPOC ---
Physical, Occupational & Speech Therapy At [facility] Current Diagnoses Urge incontinence (12/10/20) Visit Care Team Role Provider Type Justyna Burdick MD Attending Provider Physician Primary Care Provider Referring Provider Specialty: Family Practice Address: [address] [place] [address], [facility] [place], [address] Email: [email or web address] Plan Of Care PT-OP-T Assessment and Plan Start: 09/05/20 17:19 Freq: Status: Active Protocol: Document 12/10/20 08:17 LRN (Rec: 12/10/20 09:05 LRN [id number]) Physical Therapy Assessment Rehab Potential Rehabilitation Potential Good Evaluation Complexity Number of Personal Factors/Comorbidities 1-2 Number of Body Systems Impaired 3 Clinical Presentation at Evaluation Evolving Impairments Impairments Coordination,Posture,ROM, Strength Goals Four Impairment Urinary continence w/triggers (getting out of car, walking into home) Short Term Goal (STG) Pt will be educated in Urge delay technique. STG Duration 01/10/20 (09/20/20: MET GOAL) Frame Stylist Goal (LTG) Pt will be able to control her urinary incontinence in the presence of triggers (getting out of car and walking into her house). (12/10/20: No leakage with getting out of car and walking into the house) LTG Duration 03/10/21 (12/10/20: MET GOAL) Three Impairment weakness of PF and core Short Term Goal (STG) Pt will demonstrate improved PF strength of at least 3/5 and with LE muscle testing of a core strength of at least 3+ /5. STG Duration 01/17/21 Prison Goal (LTG) Pt will be able to delay urge to urinate in order to make it to bathroom getting up first in the morning. LTG Duration 03/10/21 (12/10/20: Sometimes able to stay continent) Two Impairment Assymetry of hip mob and assymetry of pelvic positioning Short Term Goal (STG) Pt will improve symmetry of hip rotator symmetry. R ER65. IR45. STG Duration 01/17/21 Prison Goal (LTG) Pt will demonstrate improved symmetry of pelvic positioning . LTG Duration 03/10/21 One Impairment Pt lacks an independent self care HEP. Prison Goal (LTG) Pt will be independent and consistent with a self care HEP. LTG Duration 03/10/21 (11/19/20: Progressing) Progress Towards Goals Progress Comments Improved hip ER mobility to 60 deg's bilaterally (ER was 45 R, 60 L). Assessment Summary Assessment Pt demonstrates today improved ability to isolate her PF contractions from substitute muscles of the hips and abdomen; therefore with PF strength testing her values are lower. Manual assessment shows imoproved PF strength in almost all areas. She has improved in her PF endurance and is able to perform 10 quick flicks and can now hold a PF contraction for 7 secs, but is able to hold a consistent hold for at least 3 secs. Pt hip mobility has not normalized since she has not been focusing her hip stretches on the tight side and shows poor techinque ( stretches too quickly). With review she seems to have a better understanding of reps/ time/side with stretches. The pt's PF contraction remains uncoordinated; therefore the pt would benefit from further therapy to improve the coordination of her contractions and the strength and endurance of contractions. Physical Therapy Plan Frequency and Duration Frequency of Treatment 1x/Week Plan of Care Start Date 12/10/20 Plan of Care End Date 03/10/21 Therapeutic Interventions Therapeutic Interventions Joint Mobilizations,Manual Therapy,Neuromuscular Re- education,Patient/Caregiver Education,Self-Care/Home Management,Soft Tissue Mobilization,Therapeutic Activities,Therapeutic Exercises Modalities Biofeedback,Cold Pack/Ice Massage,Electric Stimulation, Hot Packs Next Visit Focus/Plan Next Note Type Progress Note Next Visit Plan Review HEP for core strengthening exercise (TA) and address posture. E-Stim for relaxation, strengthening, and awareness training of proper coordinated PF contraction (pulling electrode inward, not pushing outward). Manual PF assessment for need of PF stretching ?due to tightness in 2 visits. Plan of Care Dates Plan of Care Start Date 12/10/20 Plan of Care End Date 03/10/21 Electronically Signed by: Lucero Carlisle, PT 12/10/20 [id number] Please Sign and Return: I have reviewed this Plan of Care and certify that the skilled therapy services above are required to meet the patient?s needs. Physician Signature Date Printed Name and Credentials Clinical Instructor Signature Printed Name and Credentials
--- NOTE | 2020-12-17 16:26 | PT.OTN ---
Current Diagnoses Urge incontinence (12/17/20) Physical Therapy Treatment Note PT-OP-A Visit Information Start: 09/05/20 17:19 Freq: Status: Active Protocol: Document 12/17/20 08:24 LRN (Rec: 12/17/20 09:04 LRN [id number]) Out-Patient Physical Therapy Visit Information Visit Information Visit Type Treatment Note Visit Note 1 after PN Visit Start Time 08:24 Visit Stop Time 09:02 Total Visit Minutes 38 Visit Number 10 Evaluation Information Evaluation Date 09/06/20 Precautions Precautions Depression, Controlled HBP PT-OP-B Current Condition Start: 09/05/20 17:19 Freq: Status: Active Protocol: Document 09/06/20 10:47 LRN (Rec: 09/06/20 12:37 LRN [id number]) Current Condition History of Current Condition Onset Date 6 yrs ago Current Complaints Incontinence with a strong urge Prior Treatments and Tests Physical therapy 2 yrs ago, but not able to complete due to insurance limit. Chiropractic treatment 2x/year Future Testing and Treatments Planned Sleep study. Developmental History Developmental History Had 1 son that was set up for adoption in 1988. was without complications except possible hemorrhaging Treatment Goals Patient/Caregiver Goals Pt goal is to gain control over bladder. To eliminate incontinence To be able to delay to make it to bathroom. 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 Current Functional Impairments (Reported) Functional Limitations- ADL's Pt not able to go outside the home without use of maxi-pad due to fear of loss of urine. Functional Limitations- Other Has history of R sciatic pain, R LBP, UBP. Personal Factors Other Personal Factors That May Effect Lives alone. Therapy/Recovery Endomorphic body type. PT-OP-C Subjective Start: 09/05/20 17:19 Freq: Status: Active Protocol: Document 12/17/20 08:24 LRN (Rec: 12/17/20 09:04 LRN [id number]) OP-PT Subjective Patient Comments Patient Comments States she hasn't been doing her HEP. Still doing better during the day (hasn't had any leaks during the day) and not as good at night. Ltely its once she sits up is when she leaks. PT-OP-I Pelvic Floor Start: 09/05/20 17:19 Freq: Status: Active Protocol: Document 12/10/20 08:17 LRN (Rec: 12/10/20 09:05 LRN [id number]) Pelvic Floor Assessment SEMG (uV) Quick Contraction 4.7 10 Second Contraction 4.6 Recruitment Pattern Good Relaxation Fair Holding Fair Stability of Hold Fair SEMG Stability of Rest Good Contraction Ability Voluntary Relaxation Weak Manual Muscle Testing Left 3 Manual Muscle Testing Right 2 Manual Muscle Testing Anterior 2 Manual Muscle Testing Posterior 3 Muscle Endurance (Seconds) 7 Number of Quick Contractions In 10 10 Seconds Comments Pelvic Floor Comments Quick; REST 2.1 Long Holds: 10 reps: avg rest is 1.2 uV's. Required use of towel roll and bolster to keep electrode from pushing out. PT-OP-J Posture/Palpation/Skin Start: 09/05/20 17:19 Freq: Status: Active Protocol: Document 09/06/20 10:47 LRN (Rec: 09/06/20 12:37 LRN [id number]) Posture Evaluation Position Standing Evaluation View All positions Head/C-Spine Posture C-Spine Flattened T-Spine Posture Flattened L-Spine Posture Increased Lordosis Pelvis Posture Anteriorly Tilted,(R) Iliac Crest Superior,(R) PSIS Posterior Weight Distribution Balanced Ankle/Foot Posture (L) Pronated PT-OP-K Range of Motion Start: 09/05/20 17:19 Freq: Status: Active Protocol: Document 12/10/20 08:17 LRN (Rec: 12/10/20 09:05 LRN [id number]) Hip Goniometric Range of Motion Hip Right Passive Internal Rotation 45 External Rotation 60 Left Passive Internal Rotation 30 External Rotation 60 PT-OP-M Strength Start: 09/05/20 17:19 Freq: Status: Active Protocol: Document 09/06/20 10:47 LRN (Rec: 09/06/20 12:37 LRN [id number]) Trunk Strength Trunk Manual Muscle Testing Testing Position Supine Core Stabilization Pt not able to maintain core stability (weak core R rot) with MMT leg on L side. Hip Strength Hip Manual Muscle Testing Right Flexion (L2) 4+ Good+ Adduction 4+ Good+ Comments Hip strength is 5/5 except as indicated above. Left Adduction 4+ Good+ Comments Hip strength is 5/5 except as indicated above. PT-OP-Q Treatments Start: 09/05/20 17:19 Freq: Status: Active Protocol: Document 12/17/20 08:24 LRN (Rec: 12/17/20 09:04 LRN [id number]) Therapeutic Exercises Supine Exercises TA tightening Supine Exercise Name TA/Hands & knees push Resistance Hands/Knees push Equipment Used Wedge Reps/Minutes 5 ,10x Lateral hip stretch Supine Exercise Name Lateral hip stretch (Lx2, Rx1) Side bilateral Reps/Minutes 6' Comments Extra time to teach stretch, phy cuing and assist needed. Internal Rotator stretch Supine Exercise Name Knee pulled to opposite shoulder (Lx2, Rx1) Side bilateral Reps/Minutes 6' Comments Extra time to teach stretch, phy cuing and assist needed. Fig 4 stetch Supine Exercise Name Fig 4 stretch (2nd stretch on left) Side bilateral Reps/Minutes 6' Comments Extra time to teach stretch, phy cuing and assist needed. Deep Breathing Supine Exercise Name Deep Breathing Reps/Minutes 2' Comments 3 breaths even with v cuing Sidelying Exercises TA tightening Sidelying Exercise Name TA tightening w/o & w/hands & knees push Side bilateral Equipment Used Red TBall Reps/Minutes 8x each and each side Comments L side is weaker than R Other Exercises Hands/knees TA Other Exercise Name TA tightening Reps/Minutes 10 hold x Self-Care/Home Management Treatment Education Patient Education Posture Other Education Educated pt in proper posturing with TA contraction to minimize anterior pelvic tilt. Activities Self-Care/Home Management Activities Issued & reviewed HEP: Phase 2 of LE roll in/out (legs on wall roll in/out & feet on wall rotation: pt can do as legs supported on couch). PT-OP-T Assessment and Plan Start: 09/05/20 17:19 Freq: Status: Active Protocol: Document 12/17/20 08:24 LRN (Rec: 12/17/20 09:04 LRN [id number]) Physical Therapy Assessment Goals Four Impairment Urinary continence w/triggers (getting out of car, walking into home) Short Term Goal (STG) Pt will be educated in Urge delay technique. STG Duration 01/10/20 (09/20/20: MET GOAL) Correction Goal (LTG) Pt will be able to control her urinary incontinence in the presence of triggers (getting out of car and walking into her house). (12/10/20: No leakage with getting out of car and walking into the house) LTG Duration 03/10/21 (12/10/20: MET GOAL) Three Impairment Weakness of PF and core Short Term Goal (STG) Pt will demonstrate improved PF strength of at least 3/5 and with LE muscle testing of a core strength of at least 3+ /5. STG Duration 01/17/21 Covered Buckle Assembler Goal (LTG) Pt will be able to delay urge to urinate in order to make it to bathroom getting up first in the morning. LTG Duration 03/10/21 (12/10/20: Sometimes able to stay continent) Two Impairment Assymetry of hip mob and assymetry of pelvic positioning Short Term Goal (STG) Pt will improve symmetry of hip rotator symmetry. R ER65. IR45. STG Duration 01/17/21 Correction Goal (LTG) Pt will demonstrate improved symmetry of pelvic positioning . LTG Duration 03/10/21 One Impairment Pt lacks an independent self care HEP. Covered Buckle Assembler Goal (LTG) Pt will be independent and consistent with a self care HEP. LTG Duration 03/10/21 (11/19/20: Progressing) Assessment Summary Assessment Deep Breathing remains fast at 3 secs. Need to focus on a strong PF/core strength to eliminate nighttime leakage when getting out of bed, but pt may have ms tightness preventing a strong contraction (initial assessment was tightness around the clock but weakness anteriorly & R lateral wall as well as poor endurance). Physical Therapy Plan Frequency and Duration Frequency of Treatment 1x/Week Plan of Care Start Date 12/10/20 Plan of Care End Date 03/10/21 Next Visit Focus/Plan Next Note Type Progress Note Next Visit Plan Review deep breathing & HEP issued last treatment. Manual PF assessment for need of PF stretching ?due to tightness in 2 visits. Manual therapy for PF stretching, E-Stim for proper PF contraction & for PF relaxation, also relaxation between strengthening contractions, awareness training of proper coordinated PF contraction (pulling electrode inward, not pushing outward).
--- NOTE | 2020-12-31 12:12 | PT.OTN ---
Current Diagnoses Urge incontinence (12/31/20) Physical Therapy Treatment Note PT-OP-A Visit Information Start: 09/05/20 17:19 Freq: Status: Active Protocol: Document 12/31/20 11:25 LRN (Rec: 12/31/20 12:09 LRN [id number]) Out-Patient Physical Therapy Visit Information Visit Information Visit Type Treatment Note Visit Note 2 after PN Visit Start Time 11:25 Visit Stop Time 12:03 Total Visit Minutes 38 Visit Number 11 PT-OP-B Current Condition Start: 09/05/20 17:19 Freq: Status: Active Protocol: Document 09/06/20 10:47 LRN (Rec: 09/06/20 12:37 LRN [id number]) Current Condition History of Current Condition Onset Date 6 yrs ago Current Complaints Incontinence with a strong urge Prior Treatments and Tests Physical therapy 2 yrs ago, but not able to complete due to insurance limit. Chiropractic treatment 2x/year Future Testing and Treatments Planned Sleep study. Developmental History Developmental History Had 1 son that was set up for adoption in 1988. was without complications except possible hemorrhaging Treatment Goals Patient/Caregiver Goals Pt goal is to gain control over bladder. To eliminate incontinence To be able to delay to make it to bathroom. 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 Current Functional Impairments (Reported) Functional Limitations- ADL's Pt not able to go outside the home without use of maxi-pad due to fear of loss of urine. Functional Limitations- Other Has history of R sciatic pain, R LBP, UBP. Personal Factors Other Personal Factors That May Effect Lives alone. Therapy/Recovery Endomorphic body type. PT-OP-C Subjective Start: 09/05/20 17:19 Freq: Status: Active Protocol: Document 12/31/20 11:25 LRN (Rec: 12/31/20 12:09 LRN [id number]) OP-PT Subjective Patient Comments Patient Comments Not exercising because I'm so tired, not sleeping well; therefore sleeping late and not able to exercise. The other night woke 5x to pee. States she is getting on a CPAP machine next week. PT-OP-I Pelvic Floor Start: 09/05/20 17:19 Freq: Status: Active Protocol: Document 12/10/20 08:17 LRN (Rec: 12/10/20 09:05 LRN [id number]) Pelvic Floor Assessment SEMG (uV) Quick Contraction 4.7 10 Second Contraction 4.6 Recruitment Pattern Good Relaxation Fair Holding Fair Stability of Hold Fair SEMG Stability of Rest Good Contraction Ability Voluntary Relaxation Weak Manual Muscle Testing Left 3 Manual Muscle Testing Right 2 Manual Muscle Testing Anterior 2 Manual Muscle Testing Posterior 3 Muscle Endurance (Seconds) 7 Number of Quick Contractions In 10 10 Seconds Comments Pelvic Floor Comments Quick; REST 2.1 Long Holds: 10 reps: avg rest is 1.2 uV's. Required use of towel roll and bolster to keep electrode from pushing out. PT-OP-J Posture/Palpation/Skin Start: 09/05/20 17:19 Freq: Status: Active Protocol: Document 09/06/20 10:47 LRN (Rec: 09/06/20 12:37 LRN [id number]) Posture Evaluation Position Standing Evaluation View All positions Head/C-Spine Posture C-Spine Flattened T-Spine Posture Flattened L-Spine Posture Increased Lordosis Pelvis Posture Anteriorly Tilted,(R) Iliac Crest Superior,(R) PSIS Posterior Weight Distribution Balanced Ankle/Foot Posture (L) Pronated PT-OP-K Range of Motion Start: 09/05/20 17:19 Freq: Status: Active Protocol: Document 12/10/20 08:17 LRN (Rec: 12/10/20 09:05 LRN [id number]) Hip Goniometric Range of Motion Hip Right Passive Internal Rotation 45 External Rotation 60 Left Passive Internal Rotation 30 External Rotation 60 PT-OP-M Strength Start: 09/05/20 17:19 Freq: Status: Active Protocol: Document 09/06/20 10:47 LRN (Rec: 09/06/20 12:37 LRN [id number]) Trunk Strength Trunk Manual Muscle Testing Testing Position Supine Core Stabilization Pt not able to maintain core stability (weak core R rot) with MMT leg on L side. Hip Strength Hip Manual Muscle Testing Right Flexion (L2) 4+ Good+ Adduction 4+ Good+ Comments Hip strength is 5/5 except as indicated above. Left Adduction 4+ Good+ Comments Hip strength is 5/5 except as indicated above. PT-OP-Q Treatments Start: 09/05/20 17:19 Freq: Status: Active Protocol: Document 12/31/20 11:25 LRN (Rec: 12/31/20 12:09 LRN [id number]) Therapeutic Exercises Supine Exercises Trunk rotation Supine Exercise Name Rotation strengthening, 1 sided ball press Side bilateral Equipment Used small red ball Reps/Minutes 10 hold x 10 each Comments Extra time for training. Rotational knees Roll in/outs Supine Exercise Name Rotational knees Roll in/outs Side bilateral Reps/Minutes 10x each Comments Pt needed extra cuing to proper performance & training w/breathing TA tightening Supine Exercise Name TA/Hands & knees push Side bilateral Resistance Hands/Knees push Equipment Used small ball, feet on wall Reps/Minutes 5-10, 10x Comments Cuing needed for PF relaxation LE roll in/outs Supine Exercise Name LE roll in/outs with feet on wall. Equipment Used Small Blue ball to rest legs on Reps/Minutes 10x Comments Extra time needed for proper performance, phys & verbal cuing with practice Deep Breathing Supine Exercise Name Deep Breathing Reps/Minutes 4' Comments 4 breaths to start, v. cuing needed to slow inhale. PT-OP-T Assessment and Plan Start: 09/05/20 17:19 Freq: Status: Active Protocol: Document 12/31/20 11:25 LRN (Rec: 12/31/20 12:09 LRN [id number]) Physical Therapy Assessment Goals Three Impairment Weakness of PF and core Short Term Goal (STG) Pt will demonstrate improved PF strength of at least 3/5 and with LE muscle testing of a core strength of at least 3+ /5. STG Duration 01/17/21 Assisted Goal (LTG) Pt will be able to delay urge to urinate in order to make it to bathroom getting up first in the morning. LTG Duration 03/10/21 (12/10/20: Sometimes able to stay continent) Two Impairment Assymetry of hip mob and assymetry of pelvic positioning Short Term Goal (STG) Pt will improve symmetry of hip rotator symmetry. R ER65. IR45. STG Duration 01/17/21 School Inspector Goal (LTG) Pt will demonstrate improved symmetry of pelvic positioning . LTG Duration 03/10/21 One Impairment Pt lacks an independent self care HEP. School Inspector Goal (LTG) Pt will be independent and consistent with a self care HEP. LTG Duration 03/10/21 (11/19/20: Progressing) Assessment Summary Assessment Pt moving slowly through exercises, possibly from being so tired. Deep Breathing was 4 secs, able to extend to 5-6 secs with very slow initial inhale. Pt needed review of previously issued HEP to perform properly by end of therapy. Pt diet (eating chocolate before sleeping) hindered her ability to sleep well one night and pt is dealing with lack of sleep as found during her sleep study. Physical Therapy Plan Frequency and Duration Frequency of Treatment 1x/Week Plan of Care Start Date 12/10/20 Plan of Care End Date 03/10/21 Next Visit Focus/Plan Next Note Type Treatment Note Next Visit Plan Manual PF assessment for need of PF stretching ?due to tightness, & assess PF strength. Manual therapy for PF stretching if needed; Review deep breathing for 5-6 sec breath. E-Stim for proper PF contraction & for PF relaxation, also relaxation between strengthening contractions, awareness training of proper coordinated PF contraction (pulling electrode inward, not pushing outward).
--- NOTE | 2021-01-14 12:22 | PT-OP ANOTE ---
Pt cancelled via televox
--- NOTE | 2021-01-28 11:02 | PT.OTN ---
Current Diagnoses Urge incontinence (01/28/21) Physical Therapy Treatment Note PT-OP-A Visit Information Start: 09/05/20 17:19 Freq: Status: Active Protocol: Document 01/28/21 09:56 LRN (Rec: 01/28/21 10:42 LRN [id number]) Out-Patient Physical Therapy Visit Information Visit Information Visit Type Treatment Note Visit Start Time 09:56 Visit Stop Time 10:40 Total Visit Minutes 44 Visit Number 12 Evaluation Information Evaluation Date 09/06/20 Precautions Precautions Depression, Controlled HBP PT-OP-B Current Condition Start: 09/05/20 17:19 Freq: Status: Active Protocol: Document 09/06/20 10:47 LRN (Rec: 09/06/20 12:37 LRN [id number]) Current Condition History of Current Condition Onset Date 6 yrs ago Current Complaints Incontinence with a strong urge Prior Treatments and Tests Physical therapy 2 yrs ago, but not able to complete due to insurance limit. Chiropractic treatment 2x/year Future Testing and Treatments Planned Sleep study. Developmental History Developmental History Had 1 son that was set up for adoption in 1988. was without complications except possible hemorrhaging Treatment Goals Patient/Caregiver Goals Pt goal is to gain control over bladder. To eliminate incontinence To be able to delay to make it to bathroom. 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 Current Functional Impairments (Reported) Functional Limitations- ADL's Pt not able to go outside the home without use of maxi-pad due to fear of loss of urine. Functional Limitations- Other Has history of R sciatic pain, R LBP, UBP. Personal Factors Other Personal Factors That May Effect Lives alone. Therapy/Recovery Endomorphic body type. PT-OP-C Subjective Start: 09/05/20 17:19 Freq: Status: Active Protocol: Document 01/28/21 09:56 LRN (Rec: 01/28/21 10:42 LRN [id number]) OP-PT Subjective Patient Comments Patient Comments No changes. Homework has been spotty. Just Got CPAP, so hope she can get more sleep and do better on exercise. Has been sleeping a lot and hopes she will be able to do all her sleeping now at night. PT-OP-I Pelvic Floor Start: 09/05/20 17:19 Freq: Status: Active Protocol: Document 01/28/21 09:56 LRN (Rec: 01/28/21 10:42 LRN [id number]) Pelvic Floor Assessment Contraction Ability Voluntary Contraction Moderate Manual Muscle Testing Left 1 Manual Muscle Testing Right 3 Manual Muscle Testing Anterior 3 Manual Muscle Testing Posterior 2 Muscle Endurance (Seconds) 3 Number of Quick Contractions In 10 10 Seconds PT-OP-J Posture/Palpation/Skin Start: 09/05/20 17:19 Freq: Status: Active Protocol: Document 09/06/20 10:47 LRN (Rec: 09/06/20 12:37 LRN [id number]) Posture Evaluation Position Standing Evaluation View All positions Head/C-Spine Posture C-Spine Flattened T-Spine Posture Flattened L-Spine Posture Increased Lordosis Pelvis Posture Anteriorly Tilted,(R) Iliac Crest Superior,(R) PSIS Posterior Weight Distribution Balanced Ankle/Foot Posture (L) Pronated PT-OP-K Range of Motion Start: 09/05/20 17:19 Freq: Status: Active Protocol: Document 12/10/20 08:17 LRN (Rec: 12/10/20 09:05 LRN [id number]) Hip Goniometric Range of Motion Hip Right Passive Internal Rotation 45 External Rotation 60 Left Passive Internal Rotation 30 External Rotation 60 PT-OP-M Strength Start: 09/05/20 17:19 Freq: Status: Active Protocol: Document 09/06/20 10:47 LRN (Rec: 09/06/20 12:37 LRN [id number]) Trunk Strength Trunk Manual Muscle Testing Testing Position Supine Core Stabilization Pt not able to maintain core stability (weak core R rot) with MMT leg on L side. Hip Strength Hip Manual Muscle Testing Right Flexion (L2) 4+ Good+ Adduction 4+ Good+ Comments Hip strength is 5/5 except as indicated above. Left Adduction 4+ Good+ Comments Hip strength is 5/5 except as indicated above. PT-OP-Q Treatments Start: 09/05/20 17:19 Freq: Status: Active Protocol: Document 01/28/21 09:56 LRN (Rec: 01/28/21 10:42 LRN [id number]) Therapeutic Exercises Supine Exercises PF Long Holds Supine Exercise Name Long Holds with long rest period for relaxation Reps/Minutes 10' Comments Extra time taken to assess PF Strength PF Quick Flicks Supine Exercise Name Quick Flicks Reps/Minutes 5' Comments Extra time taken to assess PF Strength Neuro Re-Education Treatment Other Activities EMG Biofeedback long hold training Details PF - Stim for proper PF contraction of pulling in Reps/Duration 15 Comments Extra time taken to slowly increase strength and tolerance to EStim. PF E-Stim Details PF E-Stim @ 100pps for 10:20 contract/relax Reps/Duration 20 Comments Extra time taken to adjust Vaginal electrode to until adequate stim could be felt on L lateral wall, then more time needed to train for timing and contraction with greater emphasis on relaxation . PT-OP-T Assessment and Plan Start: 09/05/20 17:19 Freq: Status: Active Protocol: Document 01/28/21 09:56 LRN (Rec: 01/28/21 10:42 LRN [id number]) Physical Therapy Assessment Goals Three Impairment Weakness of PF and core Short Term Goal (STG) Pt will demonstrate improved PF strength of at least 3/5 and with LE muscle testing of a core strength of at least 3+ /5. (01/28/21: PF strength is 3/5 except posterior and lateral wall is 2/5) STG Duration 01/17/21 (01/28/21: Improving) Doctor Of Nurse Anesthesia Goal (LTG) Pt will be able to delay urge to urinate in order to make it to bathroom getting up first in the morning. LTG Duration 03/10/21 (12/10/20: Sometimes able to stay continent) Two Impairment Assymetry of hip mob and assymetry of pelvic positioning Short Term Goal (STG) Pt will improve symmetry of hip rotator symmetry. R ER65. IR45. STG Duration 01/17/21 Doctor Of Nurse Anesthesia Goal (LTG) Pt will demonstrate improved symmetry of pelvic positioning . LTG Duration 03/10/21 One Impairment Pt lacks an independent self care HEP. Doctor Of Nurse Anesthesia Goal (LTG) Pt will be independent and consistent with a self care HEP. LTG Duration 03/10/21 (11/19/20: Progressing) Assessment Summary Assessment Pt able to perform a 6 sec inhale/exhale deep breathe although belly excursion is mild. Pt has used her CPAP and that may be helping to improve her deep breathing technique. Pt has decreased PF strength in the L lateral wall with quick flicks and generally endurance is only 2- 3 secs holding. She tends to increase the tone of her PF after 5 Quick Flicks and has difficulty relaxing her PF after a couple long hold exercises. The pt has improved coordination of her PF contraction with ability to contract without pushing out, but doesn't pull in either. Pt will be difficulty to improve coordination of PF contraction without increasing her PF resting tone. Had difficulty trying to get pt to feel E-Stim on L lateral wall and to obtain a strength to help provide a proper contraction, needing extra time between contractions to allow pt to relax her PF. Pt has long PF relaxation time. Pt will need to have better awareness of relaxation of PF after contractions. Physical Therapy Plan Frequency and Duration Frequency of Treatment 1x/Week Plan of Care Start Date 12/10/20 Plan of Care End Date 03/10/21 Next Visit Focus/Plan Next Note Type Treatment Note Next Visit Plan Assess response to PF stretching of L lateral wall ? due to tightness. Assess hip mobility for symmetry. Manual therapy for PF stretching (L wall) if helpful; E-Stim for proper PF contraction (6 quick or 3 long holds) & for PF relaxation, also relaxation between strengthening contractions, awareness training of proper coordinated PF contraction (pulling electrode inward, not pushing outward).
--- NOTE | 2021-02-04 16:44 | PT.OTN ---
Current Diagnoses Urge incontinence (02/04/21) Physical Therapy Treatment Note PT-OP-A Visit Information Start: 09/05/20 17:19 Freq: Status: Active Protocol: Document 02/04/21 09:56 LRN (Rec: 02/04/21 11:02 LRN [id number]) Out-Patient Physical Therapy Visit Information Visit Information Visit Type Treatment Note Visit Start Time 09:56 Visit Stop Time 10:47 Total Visit Minutes 51 Visit Number 13 Evaluation Information Evaluation Date 09/06/20 Precautions Precautions Depression, Controlled HBP PT-OP-B Current Condition Start: 09/05/20 17:19 Freq: Status: Active Protocol: Document 09/06/20 10:47 LRN (Rec: 09/06/20 12:37 LRN [id number]) Current Condition History of Current Condition Onset Date 6 yrs ago Current Complaints Incontinence with a strong urge Prior Treatments and Tests Physical therapy 2 yrs ago, but not able to complete due to insurance limit. Chiropractic treatment 2x/year Future Testing and Treatments Planned Sleep study. Developmental History Developmental History Had 1 son that was set up for adoption in 1988. was without complications except possible hemorrhaging Treatment Goals Patient/Caregiver Goals Pt goal is to gain control over bladder. To eliminate incontinence To be able to delay to make it to bathroom. 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 Current Functional Impairments (Reported) Functional Limitations- ADL's Pt not able to go outside the home without use of maxi-pad due to fear of loss of urine. Functional Limitations- Other Has history of R sciatic pain, R LBP, UBP. Personal Factors Other Personal Factors That May Effect Lives alone. Therapy/Recovery Endomorphic body type. PT-OP-C Subjective Start: 09/05/20 17:19 Freq: Status: Active Protocol: Document 02/04/21 09:56 LRN (Rec: 02/04/21 11:02 LRN [id number]) OP-PT Subjective Patient Comments Patient Comments Since sleep is better she is not so tired, so has been exercising more. Confused about relaxation of muscles; therefore focused on stretches and LE roll in/out. She feels she can hold the contraction longer. PT-OP-I Pelvic Floor Start: 09/05/20 17:19 Freq: Status: Active Protocol: Document 02/04/21 09:56 LRN (Rec: 02/04/21 11:02 LRN [id number]) Pelvic Floor Assessment SEMG (uV) Baseline 0.8 Quick Contraction 8 10 Second Contraction 9.2 Comments Pelvic Floor Comments Quick; REST 1.3 Long Holds: 10 reps: avg rest is 1.9 uV's. PT-OP-J Posture/Palpation/Skin Start: 09/05/20 17:19 Freq: Status: Active Protocol: Document 09/06/20 10:47 LRN (Rec: 09/06/20 12:37 LRN [id number]) Posture Evaluation Position Standing Evaluation View All positions Head/C-Spine Posture C-Spine Flattened T-Spine Posture Flattened L-Spine Posture Increased Lordosis Pelvis Posture Anteriorly Tilted,(R) Iliac Crest Superior,(R) PSIS Posterior Weight Distribution Balanced Ankle/Foot Posture (L) Pronated PT-OP-K Range of Motion Start: 09/05/20 17:19 Freq: Status: Active Protocol: Document 02/04/21 09:56 LRN (Rec: 02/04/21 11:02 LRN [id number]) Hip Goniometric Range of Motion Hip Right Passive Testing Position Supine Internal Rotation 30 External Rotation 85 Left Passive Testing Position Supine Internal Rotation 10 External Rotation 75 PT-OP-M Strength Start: 09/05/20 17:19 Freq: Status: Active Protocol: Document 09/06/20 10:47 LRN (Rec: 09/06/20 12:37 LRN [id number]) Trunk Strength Trunk Manual Muscle Testing Testing Position Supine Core Stabilization Pt not able to maintain core stability (weak core R rot) with MMT leg on L side. Hip Strength Hip Manual Muscle Testing Right Flexion (L2) 4+ Good+ Adduction 4+ Good+ Comments Hip strength is 5/5 except as indicated above. Left Adduction 4+ Good+ Comments Hip strength is 5/5 except as indicated above. PT-OP-Q Treatments Start: 09/05/20 17:19 Freq: Status: Active Protocol: Document 02/04/21 09:56 LRN (Rec: 02/04/21 11:02 LRN [id number]) Therapeutic Exercises Supine Exercises Lateral hip stretch Supine Exercise Name Lateral hip stretch (Lx2, Rx1) Side bilateral Reps/Minutes 6' Comments Extra time to review stretch, phy cuing and assist needed. Internal Rotator stretch Supine Exercise Name Knee pulled to opposite shoulder (sup & sitting) Side left Reps/Minutes 5' Comments Extra time to review stretch, phy cuing and assist needed. Fig 4 stetch Supine Exercise Name Fig 4 stretch Sup & sitting Side bilateral Reps/Minutes 6' Comments Extra time to review stretch, phy cuing and assist needed. Deep Breathing Supine Exercise Name Deep Breathing Reps/Minutes 3' Comments 6 breaths achieved Neuro Re-Education Treatment Other Activities EMG Biofeedback Quick Flick Training Details EMG Biofeedback Quick Flick Training Reps/Duration 10' Comments Visual feedback for relaxation as well as contraction. EMG Biofeedback long hold training Details EMG Biofeedback Long Holds Training Reps/Duration 17' Comments Visual feed back for holding contraction and returning to resting tone. Self-Care/Home Management Treatment Education Other Education Review, education and discussion of urinary delay technique with recommendation of using in stages of sup<> heel washer stringing machine operator the mornings. Discussed option of trying to do added PF quick stretches by light marching if 5-6 Quick Squeezes do not work. Discussed night before and nighttime habits to reduce urgency in AM. PT-OP-T Assessment and Plan Start: 09/05/20 17:19 Freq: Status: Active Protocol: Document 02/04/21 09:56 LRN (Rec: 02/04/21 11:02 [facility] [id number]) Physical Therapy Assessment Goals Three Impairment Weakness of PF and core Short Term Goal (STG) Pt will demonstrate improved PF strength of at least 3/5 and with LE muscle testing of a core strength of at least 3+ /5. (01/28/21: PF strength is 3/5 except posterior and lateral wall is 2/5) STG Duration 01/17/21 (01/28/21: Improving) Mcc Goal (LTG) Pt will be able to delay urge to urinate in order to make it to bathroom getting up first in the morning. (02/03/21: Pt to start bladder training in AM) LTG Duration 03/10/21 (12/10/20: Sometimes able to stay continent) Two Impairment Assymetry of hip mob and assymetry of pelvic positioning Short Term Goal (STG) Pt will improve symmetry of hip rotator symmetry. (02/03/21: In Deg's: R ER 85. IR 40. L ER 75, IR 10) STG Duration 01/17/21 Mcc Goal (LTG) Pt will demonstrate improved symmetry of pelvic positioning . LTG Duration 03/10/21 One Impairment Pt lacks an independent self care HEP. Automobile Body Customizer Goal (LTG) Pt will be independent and consistent with a self care HEP. LTG Duration 03/10/21 (11/19/20: Progressing) Progress Towards Goals Progress Comments Quick Flicks: 8 uV's, resting is 1.3 uV's (was 4.7 uV's, resting 3.1 uV's). Long Holds: 10 reps: 9.2 uV's , resting 1.9 uV's (was 4.6 uV 's, resting 1.2 uV's). Pt did not require use of towel roll to keep vaginal electrode in. Assessment Summary Assessment For first time pt reports she is able to feel vaginal electrode pull up and in with a PF contraction States she can feel her PF ms relax after manuel. PF strength improved (see above). Improvement possibly from L lateral wall stretching, PF E- Stim and/or improved sleeping habits. EMG Biofeedback shows an increase in Quick Flick strength and she is able to hold a long contraction with improved stability. Hip mobility symmetry not improved , pt to focus next week on improving L hip mobility. Physical Therapy Plan Frequency and Duration Frequency of Treatment 1x/Week Plan of Care Start Date 12/10/20 Plan of Care End Date 03/10/21 Next Visit Focus/Plan Next Note Type Treatment Note Next Visit Plan Re-assess hip mobility for symmetry. Assess L lateral wall for tightness. Manual therapy for PF stretching (L wall) if needed; E-Stim for proper PF contraction (10 quick or >10 long holds) & for PF relaxation, also relaxation between strengthening contractions, assess for proper coordinated PF contraction (pulling inward, not pushing outward).
--- NOTE | 2021-02-11 09:44 | PT-OP ANOTE ---
Cancelled, not feeling well.
--- NOTE | 2021-02-25 16:51 | PT.OTN ---
Current Diagnoses Urge incontinence (02/25/21) Physical Therapy Treatment Note PT-OP-A Visit Information Start: 09/05/20 17:19 Freq: Status: Active Protocol: Document 02/25/21 12:20 LRN (Rec: 02/25/21 13:33 LRN [id number]) Out-Patient Physical Therapy Visit Information Visit Information Visit Type Progress Note Visit Start Time 12:45 Visit Stop Time 13:30 Total Visit Minutes 45 Visit Number 14 Evaluation Information Evaluation Date 09/06/20 Precautions Precautions Depression, Controlled HBP PT-OP-B Current Condition Start: 09/05/20 17:19 Freq: Status: Active Protocol: Document 09/06/20 10:47 LRN (Rec: 09/06/20 12:37 LRN [id number]) Current Condition History of Current Condition Onset Date 6 yrs ago Current Complaints Incontinence with a strong urge Prior Treatments and Tests Physical therapy 2 yrs ago, but not able to complete due to insurance limit. Chiropractic treatment 2x/year Future Testing and Treatments Planned Sleep study. Developmental History Developmental History Had 1 son that was set up for adoption in 1988. was without complications except possible hemorrhaging Treatment Goals Patient/Caregiver Goals Pt goal is to gain control over bladder. To eliminate incontinence To be able to delay to make it to bathroom. 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 Current Functional Impairments (Reported) Functional Limitations- ADL's Pt not able to go outside the home without use of maxi-pad due to fear of loss of urine. Functional Limitations- Other Has history of R sciatic pain, R LBP, UBP. Personal Factors Other Personal Factors That May Effect Lives alone. Therapy/Recovery Endomorphic body type. PT-OP-C Subjective Start: 09/05/20 17:19 Freq: Status: Active Protocol: Document 02/25/21 12:20 LRN (Rec: 02/25/21 13:33 LRN [id number]) OP-PT Subjective Patient Comments Patient Comments AT night able to get up get to bathroom without leaking for the past week and a half. Has been doing some ex's ( stretches & LE roll in/outs). Has had only one leakage since starting the CPAP machine. Patient Questionnaires Pelvic Pain and Urgency/Frequency Patient Symptom Scale Pelvic Pain Score 2 PT-OP-I Pelvic Floor Start: 09/05/20 17:19 Freq: Status: Active Protocol: Document 02/25/21 12:20 LRN (Rec: 02/25/21 13:33 LRN [id number]) Pelvic Floor Assessment SEMG (uV) Baseline 2.0 Quick Contraction 15.8 10 Second Contraction 11 Recruitment Pattern Good Relaxation Fair Holding Fair Stability of Hold Fair SEMG Stability of Rest Fair Comments Pelvic Floor Comments Quick Flicks & Long Holds are with 10 reps. Quick Contraction: 10 reps: REST 2.9 uV's Long Hold Contraction: 10 reps: AVG REST 1.8 uV's. PT-OP-J Posture/Palpation/Skin Start: 09/05/20 17:19 Freq: Status: Active Protocol: Document 09/06/20 10:47 LRN (Rec: 09/06/20 12:37 LRN [id number]) Posture Evaluation Position Standing Evaluation View All positions Head/C-Spine Posture C-Spine Flattened T-Spine Posture Flattened L-Spine Posture Increased Lordosis Pelvis Posture Anteriorly Tilted,(R) Iliac Crest Superior,(R) PSIS Posterior Weight Distribution Balanced Ankle/Foot Posture (L) Pronated PT-OP-K Range of Motion Start: 09/05/20 17:19 Freq: Status: Active Protocol: Document 02/25/21 12:20 LRN (Rec: 02/25/21 13:33 LRN [id number]) Hip Goniometric Range of Motion Hip Right Passive Testing Position Supine Internal Rotation 25 External Rotation 75 Comments After stretching Left Passive Testing Position Supine Internal Rotation 25 External Rotation 75 Comments After stretching PT-OP-M Strength Start: 09/05/20 17:19 Freq: Status: Active Protocol: Document 09/06/20 10:47 LRN (Rec: 09/06/20 12:37 LRN [id number]) Trunk Strength Trunk Manual Muscle Testing Testing Position Supine Core Stabilization Pt not able to maintain core stability (weak core R rot) with MMT leg on L side. Hip Strength Hip Manual Muscle Testing Right Flexion (L2) 4+ Good+ Adduction 4+ Good+ Comments Hip strength is 5/5 except as indicated above. Left Adduction 4+ Good+ Comments Hip strength is 5/5 except as indicated above. PT-OP-Q Treatments Start: 09/05/20 17:19 Freq: Status: Active Protocol: Document 02/25/21 12:20 LRN (Rec: 02/25/21 13:33 LRN [id number]) Therapeutic Exercises Supine Exercises Lateral hip stretch Supine Exercise Name Lateral hip stretch (L) Side left Reps/Minutes 4' Comments Extra time to review stretch Internal Rotator stretch Supine Exercise Name Knee pulled to opposite shoulder (sup & sitting) Side left Reps/Minutes 5' Fig 4 stetch Supine Exercise Name Fig 4 stretch Sup (B) & sitting (L) Side bilateral Reps/Minutes 9' Sitting Exercises Hip ER stretch Sitting Exercise Name Hip ER stretch Side left Reps/Minutes 3' Neuro Re-Education Treatment Other Activities EMG Biofeedback Quick Flick Training Details EMG Biofeedback Quick Flick Training Reps/Duration 8' Comments Visual feedback for relaxation as well as contraction. EMG Biofeedback long hold training Details EMG Biofeedback Long Holds Training Reps/Duration 16' Comments Visual feed back for holding contraction and returning to resting tone. PT-OP-T Assessment and Plan Start: 09/05/20 17:19 Freq: Status: Active Protocol: Document 02/25/21 12:20 LRN (Rec: 02/25/21 13:33 LRN [id number]) Physical Therapy Assessment Rehab Potential Rehabilitation Potential Good Evaluation Complexity Number of Personal Factors/Comorbidities 1-2 Number of Body Systems Impaired 3 Clinical Presentation at Evaluation Evolving Impairments Impairments Posture,Soft Tissue Mobility, Strength Goals Four Impairment Urinary continence w/triggers (getting out of car, walking into home) Short Term Goal (STG) Pt will be educated in Urge delay technique. STG Duration 01/10/20 (09/20/20: MET GOAL) Wordpress Developer Goal (LTG) Pt will be able to control her urinary incontinence in the presence of triggers (getting out of car and walking into her house). (12/10/20: No leakage with getting out of car and walking into the house) LTG Duration 03/10/21 (12/10/20: MET GOAL) Three Impairment Weakness of PF and core Short Term Goal (STG) Pt will demonstrate improved PF strength of at least 3/5 and with LE muscle testing of a core strength of at least 3+ /5. (: PF strength is 3/5 except anterior and lateral wall is 2/5. ) STG Duration 03/27/21 (02/25/21: Improved) Custodial Goal (LTG) Pt will be able to delay urge to urinate in order to make it to bathroom getting up first in the morning. (02/03/21: Pt to start bladder training in AM) LTG Duration 03/10/21 (02/25/21: MET GOAL) Two Impairment Assymetry of hip mob and assymetry of pelvic positioning Short Term Goal (STG) Pt will improve symmetry of hip rotator symmetry. (02/25/21: In Deg's: ER 75 bilateral, IR 25 bilateral) STG Duration 01/17/21 (02/25/21: MET GOAL) Wordpress Developer Goal (LTG) Pt will demonstrate improved symmetry of pelvic positioning . LTG Duration 03/10/21 (02/25/21: MET GOAL) One Impairment Pt lacks an independent self care HEP. Wordpress Developer Goal (LTG) Pt will be independent and consistent with a self care HEP. LTG Duration 03/27/21 (11/19/20: Progressing) Progress Towards Goals Progress Comments Goal #4 PREVIOUSLY MET. STG #3 Bilateral hip strength 5/5 with pt able to maintain core control with hip flexion. PF strength is 3/5 except anterior and lateral wall is 2 /5 LTG #3 MET for maintaining continence first in am. STG & LTG #2 MET. Hip mobility is symmetrical for rotation. Assessment Summary Assessment PT PF contraction is coordinated and is pulling up and in vs pusing out. Weakness R side at 9 & 11 of the PF clock. R lateral wall is tight. Pt needs HEP to address this weakness and core strength. Physical Therapy Plan Frequency and Duration Frequency of Treatment 1x/Week Plan of Care Start Date 02/25/21 Plan of Care End Date 03/27/21 Therapeutic Interventions Therapeutic Interventions Home Exercise Program,Manual Therapy,Patient/Caregiver Education,Self-Care/Home Management,Therapeutic Exercises Modalities Biofeedback,Electric Stimulation Next Visit Focus/Plan Next Note Type Treatment Note Next Visit Plan Pt needs core HEP and assessment of core stability with LE MMT. Possible DC in 1 -2 visits. Possible E Stim for PF relaxation, also relaxation between strengthening contractions.
--- NOTE | 2021-02-25 16:51 | PT.OPPOC ---
Physical, Occupational & Speech Therapy At [facility] Current Diagnoses Urge incontinence (02/25/21) Visit Care Team Role Provider Type Justyna Burdick MD Attending Provider Physician Primary Care Provider Referring Provider Specialty: Family Practice Address: [address] [place] [address], [facility] [place], [address] Email: [email or web address] Plan Of Care PT-OP-T Assessment and Plan Start: 09/05/20 17:19 Freq: Status: Active Protocol: Document 02/25/21 12:20 LRN (Rec: 02/25/21 13:33 LRN [id number]) Physical Therapy Assessment Rehab Potential Rehabilitation Potential Good Evaluation Complexity Number of Personal Factors/Comorbidities 1-2 Number of Body Systems Impaired 3 Clinical Presentation at Evaluation Evolving Impairments Impairments Posture,Soft Tissue Mobility, Strength Goals Four Impairment Urinary continence w/triggers (getting out of car, walking into home) Short Term Goal (STG) Pt will be educated in Urge delay technique. STG Duration 01/10/20 (09/20/20: MET GOAL) Senior Center Manager Goal (LTG) Pt will be able to control her urinary incontinence in the presence of triggers (getting out of car and walking into her house). (12/10/20: No leakage with getting out of car and walking into the house) LTG Duration 03/10/21 (12/10/20: MET GOAL) Three Impairment Weakness of PF and core Short Term Goal (STG) Pt will demonstrate improved PF strength of at least 3/5 and with LE muscle testing of a core strength of at least 3+ /5. (: PF strength is 3/5 except anterior and lateral wall is 2/5. ) STG Duration 03/27/21 (02/25/21: Improved) Half-Way Goal (LTG) Pt will be able to delay urge to urinate in order to make it to bathroom getting up first in the morning. (02/03/21: Pt to start bladder training in AM) LTG Duration 03/10/21 (02/25/21: MET GOAL) Two Impairment Assymetry of hip mob and assymetry of pelvic positioning Short Term Goal (STG) Pt will improve symmetry of hip rotator symmetry. (02/25/21: In Deg's: ER 75 bilateral, IR 25 bilateral) STG Duration 01/17/21 (02/25/21: MET GOAL) Senior Center Manager Goal (LTG) Pt will demonstrate improved symmetry of pelvic positioning . LTG Duration 03/10/21 (02/25/21: MET GOAL) One Impairment Pt lacks an independent self care HEP. Half-Way Goal (LTG) Pt will be independent and consistent with a self care HEP. LTG Duration 03/27/21 (11/19/20: Progressing) Progress Towards Goals Progress Comments Goal #4 PREVIOUSLY MET. STG #3 Bilateral hip strength 5/5 with pt able to maintain core control with hip flexion. PF strength is 3/5 except anterior and lateral wall is 2 /5 LTG #3 MET for maintaining continence first in am. STG & LTG #2 MET. Hip mobility is symmetrical for rotation. Assessment Summary Assessment PT PF contraction is coordinated and is pulling up and in vs pusing out. Weakness R side at 9 & 11 of the PF clock. R lateral wall is tight. Pt needs HEP to address this weakness and core strength. Physical Therapy Plan Frequency and Duration Frequency of Treatment 1x/Week Plan of Care Start Date 02/25/21 Plan of Care End Date 03/27/21 Therapeutic Interventions Therapeutic Interventions Home Exercise Program,Manual Therapy,Patient/Caregiver Education,Self-Care/Home Management,Therapeutic Exercises Modalities Biofeedback,Electric Stimulation Next Visit Focus/Plan Next Note Type Treatment Note Next Visit Plan Pt needs core HEP and assessment of core stability with LE MMT. Possible DC in 1 -2 visits. Possible E Stim for PF relaxation, also relaxation between strengthening contractions. Plan of Care Dates Plan of Care Start Date 02/25/21 Plan of Care End Date 03/27/21 Electronically Signed by: Lucero Carlisle, PT 02/25/21 [id number] Please Sign and Return: I have reviewed this Plan of Care and certify that the skilled therapy services above are required to meet the patient?s needs. Physician Signature Date Printed Name and Credentials Clinical Instructor Signature Printed Name and Credentials
--- NOTE | 2021-03-18 12:26 | PT.OTN ---
Current Diagnoses Urge incontinence (03/18/21) Physical Therapy Treatment Note PT-OP-A Visit Information Start: 09/05/20 17:19 Freq: Status: Active Protocol: Document 03/18/21 09:53 LRN (Rec: 03/18/21 11:21 LRN [id number]) Out-Patient Physical Therapy Visit Information Visit Information Visit Type Treatment Note Visit Start Time 09:53 Visit Stop Time 10:31 Total Visit Minutes 38 Visit Number 15 Evaluation Information Evaluation Date 09/06/20 Precautions Precautions Depression, Controlled HBP PT-OP-B Current Condition Start: 09/05/20 17:19 Freq: Status: Active Protocol: Document 09/06/20 10:47 LRN (Rec: 09/06/20 12:37 LRN [id number]) Current Condition History of Current Condition Onset Date 6 yrs ago Current Complaints Incontinence with a strong urge Prior Treatments and Tests Physical therapy 2 yrs ago, but not able to complete due to insurance limit. Chiropractic treatment 2x/year Future Testing and Treatments Planned Sleep study. Developmental History Developmental History Had 1 son that was set up for adoption in 1988. was without complications except possible hemorrhaging Treatment Goals Patient/Caregiver Goals Pt goal is to gain control over bladder. To eliminate incontinence To be able to delay to make it to bathroom. 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 Current Functional Impairments (Reported) Functional Limitations- ADL's Pt not able to go outside the home without use of maxi-pad due to fear of loss of urine. Functional Limitations- Other Has history of R sciatic pain, R LBP, UBP. Personal Factors Other Personal Factors That May Effect Lives alone. Therapy/Recovery Endomorphic body type. PT-OP-C Subjective Start: 09/05/20 17:19 Freq: Status: Active Protocol: Document 03/18/21 09:53 LRN (Rec: 03/18/21 11:21 LRN [id number]) OP-PT Subjective Patient Comments Patient Comments Daytimes ok, nighttime not as good. Wakes in night and can' t hold it. Thinks the medication and not able to use CPAP is causing her to have incontinence. States before the sinus infection she was able to remain continent during the night. PT-OP-I Pelvic Floor Start: 09/05/20 17:19 Freq: Status: Active Protocol: Document 02/25/21 12:20 LRN (Rec: 02/25/21 13:33 LRN [id number]) Pelvic Floor Assessment SEMG (uV) Baseline 2.0 Quick Contraction 15.8 10 Second Contraction 11 Recruitment Pattern Good Relaxation Fair Holding Fair Stability of Hold Fair SEMG Stability of Rest Fair Comments Pelvic Floor Comments Quick Flicks & Long Holds are with 10 reps. Quick Contraction: 10 reps: REST 2.9 uV's Long Hold Contraction: 10 reps: AVG REST 1.8 uV's. PT-OP-J Posture/Palpation/Skin Start: 09/05/20 17:19 Freq: Status: Active Protocol: Document 09/06/20 10:47 LRN (Rec: 09/06/20 12:37 LRN [id number]) Posture Evaluation Position Standing Evaluation View All positions Head/C-Spine Posture C-Spine Flattened T-Spine Posture Flattened L-Spine Posture Increased Lordosis Pelvis Posture Anteriorly Tilted,(R) Iliac Crest Superior,(R) PSIS Posterior Weight Distribution Balanced Ankle/Foot Posture (L) Pronated PT-OP-K Range of Motion Start: 09/05/20 17:19 Freq: Status: Active Protocol: Document 02/25/21 12:20 LRN (Rec: 02/25/21 13:33 LRN [id number]) Hip Goniometric Range of Motion Hip Right Passive Testing Position Supine Internal Rotation 25 External Rotation 75 Comments After stretching Left Passive Testing Position Supine Internal Rotation 25 External Rotation 75 Comments After stretching PT-OP-M Strength Start: 09/05/20 17:19 Freq: Status: Active Protocol: Document 09/06/20 10:47 LRN (Rec: 09/06/20 12:37 LRN [id number]) Trunk Strength Trunk Manual Muscle Testing Testing Position Supine Core Stabilization Pt not able to maintain core stability (weak core R rot) with MMT leg on L side. Hip Strength Hip Manual Muscle Testing Right Flexion (L2) 4+ Good+ Adduction 4+ Good+ Comments Hip strength is 5/5 except as indicated above. Left Adduction 4+ Good+ Comments Hip strength is 5/5 except as indicated above. PT-OP-Q Treatments Start: 09/05/20 17:19 Freq: Status: Active Protocol: Document 03/18/21 09:53 LRN (Rec: 03/18/21 11:21 LRN [id number]) Therapeutic Exercises Supine Exercises Leg Loweriing Supine Exercise Name Core Stab: Leg lowering Side bilateral Reps/Minutes 6' Leg Slide Supine Exercise Name Core Stab: Leg Slide Side bilateral Reps/Minutes 10' Comments Extra time for training to stab pelvis during leg slide. Knee out/PF/TA Supine Exercise Name Core Stab: Knee out/PF/TA (R> L) Side bilateral Equipment Used Self assess and with yard stick across level of ASIS Reps/Minutes Double ex on R side Comments Constant phys cuing for awareness of pelvic stability. TA tightening Supine Exercise Name TA tightening review Reps/Minutes 4' Self-Care/Home Management Treatment Activities Self-Care/Home Management Activities Issued & reviewed HEP: Progressive Stability/Core strengthening Program & Hip flexors stretching in supine, and 2 standing stretches. PT-OP-T Assessment and Plan Start: 09/05/20 17:19 Freq: Status: Active Protocol: Document 03/18/21 09:53 LRN (Rec: 03/18/21 11:21 LRN [id number]) Physical Therapy Assessment Goals Three Impairment Weakness of PF and core Short Term Goal (STG) Pt will demonstrate improved PF strength of at least 3/5 and with LE muscle testing of a core strength of at least 3+ /5. (: PF strength is 3/5 except anterior and lateral wall is 2/5. ) STG Duration 03/27/21 (02/25/21: Improved) [facility] Goal (LTG) Pt will be able to delay urge to urinate in order to make it to bathroom getting up first in the morning. (02/03/21: Pt to start bladder training in AM) LTG Duration 03/10/21 (02/25/21: MET GOAL) One Impairment Pt lacks an independent self care HEP. Linux Systems Administrator Goal (LTG) Pt will be independent and consistent with a self care HEP. (03/18/21: Added Core/pelvic progressive stabilization program). LTG Duration 03/27/21 (03/18/21: Progressing) Assessment Summary Assessment Pt required much training and assistance for awareness of self assessment of core/pelvic stability with exercises. She had a very difficulty time assessing stability with first ex and less difficulty in subsequent ex's of the Core stabilization program. Pt was not able to attempt last ex on the program due to core weakness. Pt is having urinary leakage at nighttime only, from what appears to be due to her sinus infection medication and ?CPAP. Due to difficulty pt had understanding core/pelvic stability with ex she will need one more follow up visit to review her HEP. Physical Therapy Plan Frequency and Duration Frequency of Treatment 1x/Week Plan of Care Start Date 02/25/21 Plan of Care End Date 03/27/21 Next Visit Focus/Plan Next Note Type Treatment Note Next Visit Plan Assess of core stability with LE MMT, review HEP previously issued & assess PF strength for final assessment. DC to HEP. Review PF relaxation awareness and relaxation between strengthening contractions.
--- NOTE | 2021-03-24 15:34 | PT.OTN ---
Current Diagnoses Urge incontinence (03/24/21) Physical Therapy Treatment Note PT-OP-A Visit Information Start: 09/05/20 17:19 Freq: Status: Active Protocol: Document 03/24/21 14:20 LRN (Rec: 03/24/21 15:25 LRN [id number]) Out-Patient Physical Therapy Visit Information Visit Information Visit Type Treatment Note Visit Start Time 14:21 Visit Stop Time 14:59 Total Visit Minutes 38 Visit Number 16 Evaluation Information Evaluation Date 09/06/20 Precautions Precautions Depression, Controlled HBP PT-OP-B Current Condition Start: 09/05/20 17:19 Freq: Status: Active Protocol: Document 09/06/20 10:47 LRN (Rec: 09/06/20 12:37 LRN [id number]) Current Condition History of Current Condition Onset Date 6 yrs ago Current Complaints Incontinence with a strong urge Prior Treatments and Tests Physical therapy 2 yrs ago, but not able to complete due to insurance limit. Chiropractic treatment 2x/year Future Testing and Treatments Planned Sleep study. Developmental History Developmental History Had 1 son that was set up for adoption in 1988. was without complications except possible hemorrhaging Treatment Goals Patient/Caregiver Goals Pt goal is to gain control over bladder. To eliminate incontinence To be able to delay to make it to bathroom. 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 Current Functional Impairments (Reported) Functional Limitations- ADL's Pt not able to go outside the home without use of maxi-pad due to fear of loss of urine. Functional Limitations- Other Has history of R sciatic pain, R LBP, UBP. Personal Factors Other Personal Factors That May Effect Lives alone. Therapy/Recovery Endomorphic body type. PT-OP-C Subjective Start: 09/05/20 17:19 Freq: Status: Active Protocol: Document 03/24/21 14:20 LRN (Rec: 03/24/21 15:25 LRN [id number]) OP-PT Subjective Patient Comments Patient Comments States she was put on anti- abiotics after last session and it cleared her sinus infection. Waking once a night and mostly making it bathroom, sometimes dribbling. Trying not to eat or drink after 8p. Morning first out of bed is not as bad, and majority of the time can make it to bathroom. Leakage only in middle of the night x 1. Patient Questionnaires Pelvic Pain and Urgency/Frequency Patient Symptom Scale Pelvic Pain Score 3 PT-OP-I Pelvic Floor Start: 09/05/20 17:19 Freq: Status: Active Protocol: Document 03/24/21 14:20 LRN (Rec: 03/24/21 15:25 LRN [id number]) Pelvic Floor Assessment Contraction Ability Voluntary Contraction Moderate Voluntary Relaxation Weak Manual Muscle Testing Left 3 Manual Muscle Testing Right 3 Manual Muscle Testing Anterior 3 Manual Muscle Testing Posterior 3 Muscle Endurance (Seconds) 10 Comments Pelvic Floor Comments Not able to palpate relaxation times during quick flicks. Relaxation time after normal contraction is weak with left worse than right. PT-OP-J Posture/Palpation/Skin Start: 09/05/20 17:19 Freq: Status: Active Protocol: Document 09/06/20 10:47 LRN (Rec: 09/06/20 12:37 LRN [id number]) Posture Evaluation Position Standing Evaluation View All positions Head/C-Spine Posture C-Spine Flattened T-Spine Posture Flattened L-Spine Posture Increased Lordosis Pelvis Posture Anteriorly Tilted,(R) Iliac Crest Superior,(R) PSIS Posterior Weight Distribution Balanced Ankle/Foot Posture (L) Pronated PT-OP-K Range of Motion Start: 09/05/20 17:19 Freq: Status: Active Protocol: Document 02/25/21 12:20 LRN (Rec: 02/25/21 13:33 LRN [id number]) Hip Goniometric Range of Motion Hip Right Passive Testing Position Supine Internal Rotation 25 External Rotation 75 Comments After stretching Left Passive Testing Position Supine Internal Rotation 25 External Rotation 75 Comments After stretching PT-OP-M Strength Start: 09/05/20 17:19 Freq: Status: Active Protocol: Document 03/24/21 14:20 LRN (Rec: 03/24/21 15:25 LRN [id number]) Trunk Strength Trunk Manual Muscle Testing Core Stabilization Pt able to maintain core stability with MMT of LE's. Hip Strength Hip Manual Muscle Testing Right Comments All muscle groups 5/5 Left Comments All muscle groups 5/5 PT-OP-Q Treatments Start: 09/05/20 17:19 Freq: Status: Active Protocol: Document 03/24/21 14:20 LRN (Rec: 03/24/21 15:25 LRN [id number]) Therapeutic Exercises Supine Exercises PF relaxation Supine Exercise Name Straight legs in feet on wall position for PF relaxation Side bilateral Reps/Minutes 4' Hip AROM Supine Exercise Name Hip AROM with isometric holding Side bilateral Reps/Minutes MMT Neuro Re-Education Treatment Other Activities Pt awareness Details Awareness training for PF relaxation per digital assist. Reps/Duration 15' Comments Pt had equal PF contraction but L side was slower to relax . Much v. cuing given for relaxation using imagery and mental assist. Self-Care/Home Management Treatment Education Other Education Reviewed at length PF relaxation technique with deep breathing, imagery, self palpation of PF for physical feedback. Discussed & reviewed best routines for minimizing urinary leakage at nighttime ( fluid intake times and amounts of fluid), and discussed sleep input in urinary leakage . Discussed & educated pt at length of importance of PF relaxation and symptoms associated to a tight PF in which to avoid. Activities Self-Care/Home Management Activities Addressed questions that pt had of her HEP (primarily if not relaxing the PF). PT-OP-T Assessment and Plan Start: 09/05/20 17:19 Freq: Status: Active Protocol: Document 03/24/21 14:20 LRN (Rec: 03/24/21 15:25 LRN [id number]) Physical Therapy Assessment Goals Four Impairment Urinary continence w/triggers (getting out of car, walking into home) Short Term Goal (STG) Pt will be educated in Urge delay technique. STG Duration 01/10/20 (09/20/20: MET GOAL) Jewelry Dipper Goal (LTG) Pt will be able to control her urinary incontinence in the presence of triggers (getting out of car and walking into her house). (12/10/20: No leakage with getting out of car and walking into the house) LTG Duration 03/10/21 (12/10/20: MET GOAL) Three Impairment Weakness of PF and core Short Term Goal (STG) Pt will demonstrate improved PF strength of at least 3/5 and with LE muscle testing of a core strength of at least 3+ /5. (03/24: PF strength is 5/5 ) STG Duration 03/27/21 (03/24/21: MET GOAL) Jewelry Dipper Goal (LTG) Pt will be able to delay urge to urinate in order to make it to bathroom getting up first in the morning. (02/03/21: Pt to start bladder training in AM) LTG Duration 03/10/21 (02/25/21: MET GOAL) Two Impairment Assymetry of hip mob and assymetry of pelvic positioning Short Term Goal (STG) Pt will improve symmetry of hip rotator symmetry. (02/25/21: In Deg's: ER 75 bilateral, IR 25 bilateral) STG Duration 01/17/21 (02/25/21: MET GOAL) Jewelry Dipper Goal (LTG) Pt will demonstrate improved symmetry of pelvic positioning . LTG Duration 03/10/21 (02/25/21: MET GOAL) One Impairment Pt lacks an independent self care HEP. Skilled Nursing Goal (LTG) Pt will be independent and consistent with a self care HEP. LTG Duration 03/27/21 (03/24/21: MET GOAL) Progress Towards Goals Progress Comments Getting up in middle of the night x1, rather than initially x3. Pt placed on Independent self care HEP. Assessment Summary Assessment Pt has done very well with physical therapy but noted huge improvement in her level of urinary continence and her ability to perform exercises. Her PF strength is now graded 5/5 with concern that she may overstrengthen and develop a tight PF. The pt has been educated in symptoms that may result if her PF becomes too tight and will seek further physical therapy if that happens. The pt's symptoms have greatly improved and the pt is now ready to be placed on an independent HEP. Physical Therapy Plan Discharge Physical Therapy Discharge Reasons Goals Met Discharge Comments The pt has potential to develop a tight PF if she over exercises; therefore referral for PT in the future would be appropriate. Thank you for your referral.
== END 2021-03-25 08:20 | disposition home or self-care (01) ==
LOC: PHYS 14:15
PROVIDERS: PCP Student in an Organized Health Care Education/Training Program; Referring Provider Student in an Organized Health Care Education/Training Program; Visit Provider Student in an Organized Health Care Education/Training Program
DX: N39.41 Urge incontinence (principal)
CPT/HCPCS: 97110; 97112; 97162; 97535

== ENCOUNTER → 2023-05-18 12:12 | Outpatient (CLI) | payer OTHER, SELFPAY ==
--- NOTE | 2023-05-18 | DI.MG.S_ITS ---
BILATERAL DIGITAL DIAGNOSTIC MAMMOGRAM 3D/2D SHORT-TERM FOLLOW-UP: 05/18/2023 CLINICAL: Short term follow up of the left breast, due for bilateral imaging. Comparison is made to exams dated: 10/08/2020 mammogram, 09/10/2020 mammogram, 07/02/2016 mammogram, and 07/16/2016 mammogram - [facility]. Both breasts are heterogeneously dense, which may obscure small masses (category c / 51-75% glandular tissue). No significant masses, calcifications, or other findings are seen in either breast. IMPRESSION: INCOMPLETE: NEEDS ADDITIONAL IMAGING EVALUATION A targeted ultrasound of the left breast is recommended to evaluate previously seen ultrasound findings and will be performed immediately following this exam. Based on the Tyrer Cuzick model (a risk assessment model) the patient's lifetime risk is 10.0% and her 10 year risk is 3.2%. According to the ACR, ACS, and NCCN guidelines, an annual breast MRI exam along with mammogram is recommended if the patient's lifetime risk is 20% or greater. This exam was interpreted at Station ID: [id number]. NOTE: For mammograms, a report in lay terms will be sent to the patient. Approximately 15% of breast malignancies will not be visualized mammographically. In the management of a palpable breast mass, a negative mammogram must not discourage biopsy of a clinically suspicious lesion. Electronically Signed By: Lucero saez/:05/18/2023 12:39:35 ACR BI-RADS Category 0: Incomplete [id number]
--- NOTE | 2023-05-18 12:13 | DI.US.S_ITS ---
LIMITED ULTRASOUND OF LEFT BREAST AND AXILLA: 05/18/2023 CLINICAL: Patient returns today to evaluate a focal asymmetry in the left breast. Comparison is made to exams dated: 05/18/2023 mammogram, 10/08/2020 ultrasound, 10/08/2020 mammogram, 09/10/2020 mammogram, 07/16/2016 mammogram, and 07/02/2016 mammogram - [facility]. Color flow ultrasound of the left breast axilla was performed on the areas of interest. Christopher scale images of the real-time examination were reviewed. The oval mass with a circumscribed margin in the left breast at 12 o'clock middle depth 7 cm from the nipple is no longer seen. The 0.4 cm x 0.4 cm x 0.3 cm cyst in the left breast at 12 o'clock anterior depth 5 cm from the nipple is no longer seen. IMPRESSION: BENIGN There is no sonographic evidence of malignancy. Return to annual mammogram screening schedule is recommended. This exam was interpreted at Station ID: [id number]. Electronically Signed By: Lucero saez/:05/18/2023 13:44:23 letter sent: Normal Exam Ultrasound BI-RADS: 2 Benign
== END ==
PROVIDERS: PCP Family Medicine; Referring Provider Family Medicine; Visit Provider Family Medicine
DX: R92.8 Other abnormal and inconclusive findings on diagnostic imaging of breast (principal)
CPT/HCPCS: 76642; 77066; G0279